=== PATIENT | male | born 1955 | race Caucasian/White ===

== ENCOUNTER 2019-07-12 19:59 | Emergency (ER) | payer MEDICARE ==
[~2019-07-12] VITALS: Ht 180.3 cm; Wt 130.2 kg
[~2019-07-12 19:59] MED LIST: ADVAIR 500-501 EACH INH; ATORVASTATIN CA20 MG PO; ATROVENT HFA12.9 GM INH; COMBIVENT RESPIM4 GM INH; GABAPENTIN300 MG PO; IPRAT-ALBUT 0.5-3 ML INH; LANTUS SOL100 UNIT/1 SUB-Q; LIDOCAINE30 G TOP; LISINOPRIL20 MG PO; METFORMIN HCL1000 MG PO; NOVOLOG FL100 UNIT/1 SUB-Q; OMEPRAZOLE20 MG PO; ONE TOUCH ULTR1 EACH MISC; OXYCODONE-ACET1 EAC1 PO; TORSEMIDE20 MG PO; VITAMIN D250000 UNIT PO
[2019-07-12] MEDS ORDERED: NORCO 5-325 TA1 EACH PO (22:21)
== END 2019-07-12 22:33 | disposition home or self-care (01) ==
LOC: ED 19:59
DX: R10.31 Right lower quadrant pain (principal); J44.9 Chronic obstructive pulmonary disease, unspecified; E11.9 Type 2 diabetes mellitus without complications; I10 Essential (primary) hypertension; F17.200 Nicotine dependence, unspecified, uncomplicated; Z79.899 Other long term (current) drug therapy; Z79.4 Long term (current) use of insulin
CPT/HCPCS: 74177; 80053; 81001; 83690; 85025; 96361; 99284-25; J1170; J2405; J7040

== ENCOUNTER 2020-01-30 18:02 | Inpatient (IN) | payer MEDICARE, OTHER ==
[~2020-01-30] VITALS: Ht 180.3 cm; Wt 117.8 kg
--- OUTSIDE RECORDS SUMMARY | ~2020-01-30 | XMS | Encounter Summary ---
Demographics + + + | Address | [address] | | | [place] [address] | + + + | Home Phone | | + + + | Preferred Language | Unknown | + + + | Marital Status | | + + + | Hoahaoism Affiliation | Unknown | + + + | Race | Unknown | + + + | Ethnic Group | Unknown | + + + Author + + + | Author | [facility] | | | and [place] | + + + | Organization | [facility] | | | and [place] | + + + | Address | Unknown | + + + | Phone | Unavailable | + + + Support + + + + + | Name | Relationship | Address | Phone | + + + + + | Liudmila Chang | ECON | [address] | | | | | [place], [place] | | | | | [address] | | + + + + + Care Team Providers + +------+ + | Care Director Business Systems Name | Role | Phone | + +------+ + | Kaylene Burch MD | PCP | | + +------+ + Encounter Details +--------+ + + + + | Date | Type | Department | Care Team | Description | +--------+ + + + + | 04/22/ | Imaging | [facility] | Provider, | | | 2017 | Exam | [facility] | MD Antonella [address] | | | | | IMAGING [address] | | | | | [address] [place] | [place] [address] | | | | | [place] [address] | | | | | | [phone] | | | +--------+ + + + + Social History + +-------+ +--------+------+ | Tobacco Use | Types | Packs/Day | Years | Date | | | | | Used | | + +-------+ +--------+------+ | Current Every Day | | | | | | Smoker | | | | | + +-------+ +--------+------+ + + +---------+ + | Alcohol Use | Drinks/Week | oz/Week | Comments | + + +---------+ + | Not Asked | 0 Standard drinks | 0.0 | | | | or equivalent | | | + + +---------+ + + + + | Sex Assigned at | Date Recorded | | | | + + + | Not on file | | + + + documented as of this encounter Plan of Treatment Not on filedocumented as of this encounter Procedures + +--------+ + + + | Procedure Name | Priori | Date/Time | Associated Diagnosis | Comments | | | ty | | | | + +--------+ + + + | US RENAL COMPLETE | Routin | 02/27/2017 | | Results for this | | | e | 1:20 PM | | procedure are in the | | | | PDT | | results section. | + +--------+ + + + documented in this encounter Results US Renal Complete (02/27/2017 1:20 PM PDT) + + | Specimen | + + | | + + + + + | Narrative | Performed At | + + + | External films | [facility] | | for comparison only - no result from [place]. | | + + + + +---------+ + + | Performing | Address | City/State/Zipcode | Phone Number | | Organization | | | | + +---------+ + + | [facility] | | | | + +---------+ + + documented in this encounter Visit Diagnoses Not on filedocumented in this encounter"
--- OUTSIDE RECORDS SUMMARY | ~2020-01-30 | XMS | Encounter Summary ---
Demographics + + + | Address | [address] | | | [place] [address] | + + + | Home Phone | | + + + | Preferred Language | Unknown | + + + | Marital Status | | + + + | Methodist Affiliation | Unknown | + + + | Race | Unknown | + + + | Ethnic Group | Unknown | + + + Author + + + | Author | [facility] | | | and [place] | + + + | Organization | [facility] | | | and [place] | + + + | Address | Unknown | + + + | Phone | Unavailable | + + + Support + + + + + | Name | Relationship | Address | Phone | + + + + + | Liudmila Chang | ECON | [address] | | | | | [place] | | | | | [address] | | + + + + + Care Team Providers + +------+ + | Care Digital Sales Assistant Name | Role | Phone | + +------+ + | Kaylene Burch MD | PCP | | + +------+ + Encounter Details +--------+ + + + + | Date | Type | Department | Care Team | Description | +--------+ + + + + | 01/31/ | Orders Only | [facility] | Provider, | | | 2019 | | SYSTEM GENERIC OP | MD [address]ella [address] | | | | | CONVERSION [address] | [address] [address]. | | | | | [address] [place], [place] | [place] [address] | | | | | [address] | | | | | | [phone] | | | +--------+ + + + + Social History + + + +--------+ + | Tobacco Use | Types | Packs/Day | Years | Date | | | | | Used | | + + + +--------+ + | Current Every Day | Cigarettes | 1 | | Started: 06/22/1972 | | Smoker | | | | | + + + +--------+ + + +---+---+---+ | Smokeless Tobacco: | | | | | Never Used | | | | + +---+---+---+ + + +---------+ + | Alcohol Use | Drinks/Week | oz/Week | Comments | + + +---------+ + | No | 0 Standard drinks | 0.0 | | | | or equivalent | | | + + +---------+ + + + + | Sex Assigned at | Date Recorded | | | | + + + | Not on file | | + + + documented as of this encounter Plan of Treatment Not on filedocumented as of this encounter Visit Diagnoses Not on filedocumented in this encounter"
--- OUTSIDE RECORDS SUMMARY | ~2020-01-30 | XMS | Encounter Summary ---
Demographics + + + | Address | [address] | | | [place] [address] | + + + | Home Phone | | + + + | Preferred Language | Unknown | + + + | Marital Status | | + + + | Restorationist Affiliation | Unknown | + + + | Race | Unknown | + + + | Ethnic Group | Unknown | + + + Author + + + | Author | [facility] | | | and [place] | + + + | Organization | [facility] | | | and [place] | + + + | Address | Unknown | + + + | Phone | Unavailable | + + + Support + + + + + | Name | Relationship | Address | Phone | + + + + + | Liudmila Chang | ECON | [address] | | | | | [place] | | | | | [address] | | + + + + + Care Team Providers + +------+ + | Care Concrete Products Machine Operator Name | Role | Phone | + +------+ + | Kaylene Burch MD | PCP | | + +------+ + Encounter Details +--------+ + + + + | Date | Type | Department | Care Team | Description | +--------+ + + + + | 09/09/ | Orders Only | [facility] | Conversion | | | 2016 | | NEPRHOLOGY [place] | Transaction, | | | | | [address] | Provider Unknown | | | | | [address] [place], [place] | [phone] | | | | | [address] | | | | | | [phone] | | | +--------+ + + + [...] | + +--------+ + + + | LIPID PANEL | Routin | 09/09/2016 | | Results for this | | | e | 9:02 AM | | procedure are in the | | | | PDT | | results section. | + +--------+ + + + | MICROALBUMIN/CREATIN | Routin | 09/09/2016 | | Results for this | | INE RATIO, URINE | e | 9:02 AM | | procedure are in the | | TEST | | PDT | | results section. | + +--------+ + + + | HEMOGLOBIN A1C | Routin | 09/09/2016 | | Results for this | | | e | 9:02 AM | | procedure are in the | | | | PDT | | results section. | + +--------+ + + + | COMPREHENSIVE | Routin | 09/09/2016 | | Results for this | | METABOLIC PANEL | e | 9:02 AM | | procedure are in the | | | | PDT | | results section. | + +--------+ + + + documented in this encounter Results Microalbumin/Creatinine Ratio, Urine (09/09/2016 9:02 AM PDT) + + + + + + | Component | Value | Ref Range | Performed | Pathologist | | | | | At | Signature | + + + + + + | ALBUMIN/CRE | 254.3 (A) | 0 - 30 | EXTERNAL | | | ATININE | | | LAB | | | RATIO.URINE | | | | | | .ORD.MG/G | | | | | | (TJAKER) | | | | | | | | | | | | | | | | | + + + + + + + + | Specimen | + + | Urine specimen | | (specimen) | + + + +---------+ + + | Performing | Address | City/State/Zipcode | Phone Number | | Organization | | | | + +---------+ + + | EXTERNAL LAB | | | | + +---------+ + + Hemoglobin A1C (09/09/2016 9:02 AM PDT) + +-------+ + + + | Component | Value | Ref Range | Performed | Pathologist | | | | | At | Signature | + +-------+ + + + | Hemoglobin | 9.6 | % | EXTERNAL | | | A1c | | | LAB | | + +-------+ + + + + + | Specimen | + + | Blood specimen | | (specimen) | + + + +---------+ + + | Performing | Address | City/State/Zipcode | Phone Number | | Organization | | | | + +---------+ + + | EXTERNAL LAB | | | | + +---------+ + + Lipid Panel (09/09/2016 9:02 AM PDT) + +-------+ + + + | Component | Value | Ref Range | Performed | Pathologist | | | | | At | Signature | + +-------+ + + + | Cholesterol | 100 | mg/dL | EXTERNAL | | | | | | LAB | | + +-------+ + + + | Triglycerid | 75 | 30 - 150 mg/dL | EXTERNAL | | | es | | | LAB | | + +-------+ + + + | HDL | 30.9 | mg/dl | EXTERNAL | | | | | | LAB | | + +-------+ + + + | LDL, | 54 | mg/dL | EXTERNAL | | | Calculated | | | LAB | | + +-------+ + + + | LDl/HDL | | | EXTERNAL | | | Ratio | | | LAB | | + +-------+ + + + | Chol/HDL | 3.2 | | EXTERNAL | | | Ratio | | | LAB | | + +-------+ + + + | VLDL | 15 | 4 - 40 mg/dL | EXTERNAL | | | | | | LAB | | + +-------+ + + + | Non HDL | 69 | | EXTERNAL | | | Chol. | | | LAB | | | (LDL+VLDL) | | | | | + +-------+ + + + + + | Specimen | + + | Blood specimen | | (specimen) | + + + +---------+ + + | Performing | Address | City/State/Zipcode | Phone Number | | Organization | | | | + +---------+ + + | EXTERNAL LAB | | | | + +---------+ + + Comprehensive Metabolic Panel (09/09/2016 9:02 AM PDT) + + + + + + | Component | Value | Ref Range | Performed | Pathologist | | | | | At | Signature | + + + + + + | Glucose, | 143 (A) | 70 - 100 mg/dL | EXTERNAL | | | Fasting | | | LAB | | + + + + + + | BUN | 13 | 6 - 23 mg/dL | EXTERNAL | | | | | | LAB | | + + + + + + | Creatinine | 0.69 (A) | 0.70 - 1.25 | EXTERNAL | | | | | mg/dL | LAB | | + + + + + + | BUN/Creatin | 18.8 | 6.0 - 28.6 | EXTERNAL | | | ine Ratio | | | LAB | | + + + + + + | Calcium | 8.8 | 8.4 - 10.2 | EXTERNAL | | | | | mg/dL | LAB | | + + + + + + | Protein, | 7.1 | 6.0 - 8.0 g/dL | EXTERNAL | | | Total | | | LAB | | + + + + + + | Albumin | 3.4 (A) | 3.5 - 5.0 | EXTERNAL | | | | | | LAB | | + + + + + + | Globulin | 3.7 (A) | 1.8 - 3.5 | EXTERNAL | | | | | | LAB | | + + + + + + | A/G Ratio | 0.9 (A) | 1.1 - 2.4 | EXTERNAL | | | | | | LAB | | + + + + + + | Bilirubin | 1.0 | 0.0 - 1.2 mg/dL | EXTERNAL | | | Total | | | LAB | | + + + + + + | ALP, | 75 | 31 - 120 | EXTERNAL | | | External | | | LAB | | + + + + + + | ALT | 7 | 7 - 52 U/L | EXTERNAL | | | | | | LAB | | + + + + + + | AST | 7 (A) | 13 - 39 U/L | EXTERNAL | | | | | | LAB | | + + + + + + | Na | 137 | 132 - 143 | EXTERNAL | | | | | mmol/L | LAB | | + + + + + + | K | 4.5 | 3.6 - 5.1 | EXTERNAL | | | | | mmol/L | LAB | | + + + + + + | Cl | 99 | 95 - 112 mmol/L | EXTERNAL | | | | | | LAB | | + + + + + + | CO2 | 26 | 19 - 31 mmol/L | EXTERNAL | | | | | | LAB | | + + + + + + | Anion Gap | 16.5 | 7 - 21 mmol/L | EXTERNAL | | | | | | LAB | | + + + + + + | Estimated | 116 | mg/dL | EXTERNAL | | | GFR | | | LAB | | + + + + + + + + | Specimen | + + | Blood specimen | | (specimen) | + + + +---------+ + + | Performing | Address | City/State/Zipcode | Phone Number | | Organization | | | | + +---------+ + + | EXTERNAL LAB | | | | + +---------+ + + documented in this encounter Visit Diagnoses Not on filedocumented in this encounter"
--- OUTSIDE RECORDS SUMMARY | ~2020-01-30 | XMS | Encounter Summary ---
Demographics + + + | Address | [address] | | | [place] [address] | + + + | Home Phone | | + + + | Preferred Language | Unknown | + + + | Marital Status | | + + + | Mandaeism Affiliation | Unknown | + + + | Race | Unknown | + + + | Ethnic Group | Unknown | + + + Author + + + | Author | [facility] | | | and [place] | + + + | Organization | [facility] | | | and [place] | + + + | Address | Unknown | + + + | Phone | Unavailable | + + + Support + + + + + | Name | Relationship | Address | Phone | + + + + + | Liudmila Chang | ECON | [address] | | | | | [place] | | | | | [address] | | + + + + + Care Team Providers + +------+ + | Care Paper Finisher Name | Role | Phone | + +------+ + | Kaylene Burch MD | PCP | | + +------+ + Encounter Details +--------+ + + + + | Date | Type | Department | Care Team | Description | +--------+ + + + + | 09/02/ | Orders Only | [facility] | Conversion | | | 2016 | | NEPHROLOGY [place] | Transaction, | | | | | [address] [facility] [address] | Provider Unknown | | | | | [address] [place] | | | | | | [address] | (Fax) | | | | | [phone] | | | +--------+ + + + [...] | + +--------+ + + + | BASIC METABOLIC | Routin | 09/02/2016 | | Results for this | | PANEL | e | 8:56 AM | | procedure are in the | | | | PDT | | results section. | + +--------+ + + + documented in this encounter Results Basic Metabolic Panel (09/02/2016 8:56 AM PDT) + +---------+ + + + | Component | Value | Ref Range | Performed | Pathologist | | | | | At | Signature | + +---------+ + + + | Glucose, | 188 (A) | 70 - 100 mg/dL | EXTERNAL | | | Fasting | | | LAB | | + +---------+ + + + | BUN | 12 | 6 - 23 mg/dL | EXTERNAL | | | | | | LAB | | + +---------+ + + + | Creatinine | 0.81 | 0.70 - 1.25 | EXTERNAL | | | | | mg/dL | LAB | | + +---------+ + + + | BUN/Creatin | 14.8 | 6.0 - 28.6 | EXTERNAL | | | ine Ratio | | | LAB | | + +---------+ + + + | Calcium | 9.0 | 8.4 - 10.2 | EXTERNAL | | | | | mg/dL | LAB | | + +---------+ + + + | Na | 135 | 132 - 143 | EXTERNAL | | | | | mmol/L | LAB | | + +---------+ + + + | K | 4.7 | 3.6 - 5.1 | EXTERNAL | | | | | mmol/L | LAB | | + +---------+ + + + | Cl | 97 | 95 - 112 mmol/L | EXTERNAL | | | | | | LAB | | + +---------+ + + + | CO2 | 27 | 19 - 31 mmol/L | EXTERNAL | | | | | | LAB | | + +---------+ + + + | Anion Gap | 15.7 | 7 - 21 mmol/L | EXTERNAL | | | | | | LAB | | + +---------+ + + + | Estimated | 97 | mg/dL | EXTERNAL | | | GFR | | | LAB | | + +---------+ + + + + + | Specimen [...]
--- OUTSIDE RECORDS SUMMARY | ~2020-01-30 | XMS | Encounter Summary ---
Demographics + + + | Address | [address] | | | [place] [address] | + + + | Home Phone | | + + + | Preferred Language | Unknown | + + + | Marital Status | | + + + | Adventist Affiliation | Unknown | + + + | Race | Unknown | + + + | Ethnic Group | Unknown | + + + Author + + + | Author | [facility] | | | and [place] | + + + | Organization | [facility] | | | and [place] | + + + | Address | Unknown | + + + | Phone | Unavailable | + + + Support + + + + + | Name | Relationship | Address | Phone | + + + + + | Liudmila Chang | ECON | [address] | | | | | [place] | | | | | [address] | | + + + + + Care Team Providers + +------+ + | Care Frame Table Operator Helper Name | Role | Phone | + +------+ + | Kaylene Burch MD | PCP | | + +------+ + Reason for Visit +--------+--------+ + | Reason | Onset | Comments | | | Date | | +--------+--------+ + | Other | 06/12/ | imaging orders | | | 2015 | | +--------+--------+ + Encounter Details +--------+ + + + + | Date | Type | Department | Care Team | Description | +--------+ + + + + | 06/12/ | Telephone | [facility] | Christopher Kim MD | Other (imaging | | 2014 | | OTOLARYNGOLOGY [address] | [address] | orders) | | | | [address] | [address] [place] | | | | | [place] | [place] [address] | | | | | [address] | [phone] | | | | | [phone] | | | +--------+ + + + [...] + + documented as of this encounter Miscellaneous Notes Telephone Encounter - Rosa Galloway RN - 06/18/2015 8:33 AM PSTCalled and left jodie essage that imaging orders have been sent to [facility]. elephone Encounter - Cindi Thorpe, Sami Ass isdario - 06/13/2015 9:09 AM PSTOrders have been sent to [facility] Need to call and let the patient know that the orders are there. elephone Encounter - Anna Benz - 06/12/2015 2:18 PM PSTPatients called in to let the nurse know they would like imaging to be sent at [facility]. Blood work has been done at [facility] in [place]. documented in this encounter Plan of Treatment Not on filedocumented as of this encounter Visit Diagnoses Not on filedocumented in this encounter"
--- OUTSIDE RECORDS SUMMARY | ~2020-01-30 | XMS | Encounter Summary ---
Demographics + + + | Address | [address] | | | [place] [address] | + + + | Home Phone | | + + + | Preferred Language | Unknown | + + + | Marital Status | | + + + | Religion Affiliation | Unknown | + + + | Race | Unknown | + + + | Ethnic Group | Unknown | + + + Author + + + | Author | [facility] | | | and [place] | + + + | Organization | [facility] | | | and [place] | + + + | Address | Unknown | + + + | Phone | Unavailable | + + + Support + + + + + | Name | Relationship | Address | Phone | + + + + + | Liudmila Chang | ECON | [address] | | | | | [place] | | | | | [address] | | + + + + + Care Team Providers + +------+ + | Care Senior Php Web Developer Name | Role | Phone | + +------+ + | Kaylene Burch MD | PCP | | + +------+ + Encounter Details +--------+ + + + + | Date | Type | Department | Care Team | Description | +--------+ + + + + | 12/18/ | Hospital | C GENERIC IP | Conversion | Pain | | 2016 | Encounter | CONVERSION [address] | Transaction, | | | | | [address] | Provider Unknown | | | | | [place] | [phone] | | | | | [address] | | | | | | [phone] | | | +--------+ + + + [...] + + documented as of this encounter Medications at Time of Discharge + + + +---------+--------+ + | Medication | Sig | Dispensed | Refills | Start | End Date | | | | | | Date | | + + + +---------+--------+ + | aspirin 81 mg EC | Take 81 mg by mouth | | 0 | | | | tablet | Daily. | | | | | + + + +---------+--------+ + | carbidopa-levodopa | Take 1 tablet by | | 0 | | | | (SINEMET) 10-100 mg | mouth 3 times daily. | | | | | | per tablet | | | | | | + + + +---------+--------+ + | gabapentin | Take 300 mg by mouth | | 0 | | | | (NEURONTIN) 300 mg | 3 times daily. | | | | | | capsule | | | | | | + + + +---------+--------+ + | insulin aspart | Inject 30 Units | | 0 | | | | (NOVOLOG FLEXPEN) | under the skin 2 | | | | | | 100 units/mL | times daily. | | | | | | injection pen | | | | | | + + + +---------+--------+ + | lisinopril | Take 20 mg by mouth | | 0 | | | | (PRINIVIL, ZESTRIL) | Daily. | | | | | | 20 mg tablet | | | | | | + + + +---------+--------+ + | metFORMIN | Take 500 mg by mouth | | 0 | | | | (GLUCOPHAGE) 1000 MG | Daily. | | | | | | tablet | | | | | | + + + +---------+--------+ + | simvastatin | Take 20 mg by mouth | | 0 | | | | (ZOCOR) 40 mg tablet | nightly. | | | | | + + + +---------+--------+ + | insulin detemir | Inject under the | | 0 | | | | (LEVEMIR FLEXTOUCH) | skin nightly. | | | | 7 | | 100 units/mL | | | | | | | injection (pen) | | | | | | + + + +---------+--------+ + | terbinafine | Apply topically 2 | | 0 | | | | (LAMISIL) 1% cream | times daily. | | | | 7 | + + + +---------+--------+ + documented as of this encounter Plan of Treatment Not on filedocumented as of this encounter Procedures + +--------+ + + + | Procedure Name | Priori | Date/Time | Associated Diagnosis | Comments | | | ty | | | | + +--------+ + + + | CT CHEST WO CONTRAST | Routin | 11/12/2015 | | Results for this | | | e | 1:03 PM | | procedure are in the | | | | PDT | | results section. | + +--------+ + + + documented in this encounter Results CT Chest wo Contrast (11/12/2015 1:03 PM PDT) + + | Specimen | + + | | + + + + + | Narrative | Performed At | + + + | This is a non-reportable procedure without a radiologist report and | | | is used for image storage only | | + + + + + | Procedure Note | + + | Faustino Griffith - 02/03/2019 9:46 PM PDT This is a non-reportable procedure | | without a radiologist report and isused for image storage only | + + documented in this encounter Visit Diagnoses + + | Diagnosis | + + | Pain Generalized pain | + + documented in this encounter"
--- OUTSIDE RECORDS SUMMARY | ~2020-01-30 | XMS | Encounter Summary ---
Demographics + + + | Address | [address] | | | [place] [address] | + + + | Home Phone | | + + + | Preferred Language | Unknown | + + + | Marital Status | | + + + | Jehovah'S Witness Affiliation | Unknown | + + + | Race | Unknown | + + + | Ethnic Group | Unknown | + + + Author + + + | Author | [facility] | | | and [place] | + + + | Organization | [facility] | | | and [place] | + + + | Address | Unknown | + + + | Phone | Unavailable | + + + Support + + + + + | Name | Relationship | Address | Phone | + + + + + | Liudmila Chang | ECON | [address] | | | | | [place] | | | | | [address] | | + + + + + Care Team Providers + +------+ + | Care Drying Room Operator Name | Role | Phone | + +------+ + | Kaylene Burch MD | PCP | | + +------+ + Reason for Visit +--------+--------+ + | Reason | Onset | Comments | | | Date | | +--------+--------+ + | Other | 06/27/ | | | | 2015 | | +--------+--------+ + Encounter Details +--------+ + + + + | Date | Type | Department | Care Team | Description | +--------+ + + + + | 06/27/ | Telephone | [facility] | Christopher Kim MD | Other | | 2016 | | OTOLARYNGOLOGY [address] | [address] | | | | | [address] | [address] [place] | | | | | [place], [place] | [place] [address] | | | | | [address] | [phone] | | | | | [phone] | | | +--------+ + + + [...] this encounter Miscellaneous Notes Telephone Encounter - Cindi Thorpe Estate Agent - 08/15/2015 8:30 AM PSTLabs hav e been reviewed 8 :31 AM PSTTelephone Encounter - Cindi Thorpe Estate Agent - 07/03/2015 10:37 AM PS TJust received labs and they have been placed on desnicole so he can review them. Electr onically signed by Cindi Thorpe Estate Agent at 07/03/2015 10:38 AM PSTTelephone En counter - Roxana Contreras CMA - 06/29/2015 9:14 AM PSTCalled and left another message for th e patient to call back elephone Encounter - Roxana Contreras CMA - 06/27/2015 9:59 AM PSTCalled and left a message f or the patient to call back and let us know if he has had labs and his thyroid u/s done yet. documented in this enco unter Plan of Treatment Not on filedocumented as of this encounter Visit Diagnoses Not on filedocumented in this encounter"
--- OUTSIDE RECORDS SUMMARY | ~2020-01-30 | XMS | Encounter Summary ---
Demographics + + + | Address | [address] | | | [place] [address] | + + + | Home Phone | | + + + | Preferred Language | Unknown | + + + | Marital Status | | + + + | Baptist Affiliation | Unknown | + + + | Race | Unknown | + + + | Ethnic Group | Unknown | + + + Author + + + | Author | [facility] | | | and [place] | + + + | Organization | [facility] | | | and [place] | + + + | Address | Unknown | + + + | Phone | Unavailable | + + + Support + + + + + | Name | Relationship | Address | Phone | + + + + + | Liudmila Chang | ECON | [address] | | | | | [place] | | | | | [address] | | + + + + + Care Team Providers + +------+ + | Care Auditing Specialist Name | Role | Phone | + +------+ + | Kaylene Burch MD | PCP | | + +------+ + Reason for Visit + + + | Reason | Comments | + + + | New Patient | thyroid,no pain | + + + Evaluate & Treat (Routine) +--------+--------+ + + + + | Status | Reason | Specialty | Diagnoses / | Referred By | Referred To | | | | | Procedures | Contact | Contact | +--------+--------+ + + + + | Closed | | Otolaryngolog | Diagnoses | Mar[place], | Christopher Henson | | | | y | | Kaylene | MD [place] [address] | | | | | thyroid/ | MD Candido | [address] | | | | | /[place] | [address] | [address] | | | | | n/img at st | [id number] | [place], | | | | | anth | [place], | [place] [address] | | | | | Procedures | [place] [address] | Phone: | | | | | NEW PATIENT | Phone: | [phone] | | | | | | [phone] | Fax: | | | | | | Fax: | [phone] | | | | | | [phone] | | +--------+--------+ + + + + Encounter Details +--------+---------+ + + + | Date | Type | Department | Care Team | Description | +--------+---------+ + + + | 05/10/ | Office | [facility] | Christopher Henson MD | Thyroid nodule | | 2014 | Visit | OTOLARYNGOLOGY [address] | [address] | (Primary Dx); | | | | [address] | [address] [place] | Nontoxic uninodular | | | | [place], [place] | [place] [address] | goiter | | | | [address] | [phone] | | | | | [phone] | | | +--------+---------+ + + + Social History + +-------+ [...] + + documented as of this encounter Last Filed Vital Signs + + + + + | Vital Sign | Reading | Time Taken | Comments | + + + + + | Blood Pressure | - | - | | + + + + + | Pulse | 96 | 05/10/2015 1:43 PM | | | | | PST | | + + + + + | Temperature | - | - | | + + + + + | Respiratory Rate | 16 | 05/10/2015 1:43 PM | | | | | PST | | + + + + + | Oxygen Saturation | 91% | 05/10/2015 1:43 PM | | | | | PST | | + + + + + | Inhaled Oxygen | - | - | | | Concentration | | | | + + + + + | Weight | 120.2 kg (265 lb) | 05/10/2015 1:43 PM | | | | | PST | | + + + + + | Height | 181.6 cm (5' 11.5") | 05/10/2015 1:43 PM | | | | | PST | | + + + + + | Body Mass Index | 36.44 | 05/10/2015 1:43 PM | | | | | PST | | + + + + + documented in this encounter Progress Notes Christopher Henson MD - 05/10/2015 4:01 PM PST [facility] OTOLARYNGOLOGY [address] [facility] [address] OFFICE NOTE CHRISTOPHER HENSON MD Patient: GALINDO CHANG Admitting: MR #: [id number] LOC: PT TYPE: Adm Date: 05/10/2015 : 1955 DATE OF VISIT: 05/10/2015 The patient had a CT scan of his chest and it was noted he had nodules in his thyroid glan d. The patient had a thyroid ultrasound back in October of this year and noted to have 4 nodul es at least in the right side and 3 in the left, also other small nodules were noted, some of them were cystic. The patient's largest nodule in the left is 2.1 cm. He had an attemp t at a fine-needle aspiration, but this was unsuccessful. The patient was sent for ENT for further evaluation. He is not having any problems with swallowing, no difficulty with his speech. 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 No other ENT complaints. EXAMINATION: GENERAL: Shows an alert 59-year-old male. HEENT: Skin of the face, nose and ears appear healthy, has a lot of torres. Ear canals ar e open. They are clean. Drums were clear. Nasal passages: No obstruction, no mass or le jose david on either side. He feels he breathes okay through the nose. Parotid, submandibular g lands felt normal. Facial movement symmetrical. Floor of the mouth, buccal mucosa, hard palate, teeth, lips, gums are healthy. No mass seen in the oropharynx and posterior pharyn geal wall was smooth. Tongue and soft palate are smooth and move symmetrically. NECK: There are no masses or lymphadenopathy. Thyroid area: No obvious masses palpated. Trachea was midline. Good range of motion of the neck is noted. The ultrasound was reviewed. As noted, he has 4 nodules on the right and 3 in the left. The ones in the right range from around a centimeter to 1.5 cm, the left ones are a centime ter range, with the one larger one at the 2.1-2.2 cm size. IMPRESSION: Multinodular goiter. There were no particular abnormal calcifications pointi ng to any particular one for a suspicious lesion. PLAN: The patient will have a repeat thyroid ultrasound seeing he is now about 8 months o ut from the previous ultrasound. Also a T3-T4 and TSH will be obtained. The patient will return once the ultrasound has been completed to see if there is any growth in any of these nodules. Further decisions will be made at that point. CHRISTOPHER HENSON MD Dictated by CHRISTOPHER HENSON MD 05/10/2015 16:01:29 Transcribed on 05/11/2015 14:25:53 by candace job# [id number] Confirmation #: [id number] signed by Christopher Henson MD at 05/13/2015 2:31 PM PST Christopher Henson MD - 05/10/2015 3:57 PM PSTSee dictation # [id number] signed by Christopher Henson MD at 05/10/2015 4:02 PM PSTdocumented in th is encounter Plan of Treatment + +---------+--------+ + + | Name | Type | Priori | Associated Diagnoses | Order Schedule | | | | ty | | | + +---------+--------+ + + | US Head Neck Soft | Imaging | Routin | Thyroid nodule | Expected: | | Tissue | | e | | 05/10/2015, Expires: | | | | | | 05/10/2016 | + +---------+--------+ + + | TSH | Lab | Routin | Thyroid nodule | 1 Occurrences | | | | e | | starting 05/10/2015 | | | | | | until 05/10/2016 | + +---------+--------+ + + | T4, Free | Lab | Routin | Thyroid nodule | 1 Occurrences | | | | e | | starting 05/10/2015 | | | | | | until 05/10/2016 | + +---------+--------+ + + | T3 | Lab | Routin | Thyroid nodule | 1 Occurrences | | | | e | | starting 05/10/2015 | | | | | | until 05/10/2016 | + +---------+--------+ + + documented as of this encounter Visit Diagnoses + + | Diagnosis | + + | Thyroid nodule - Primary Nontoxic uninodular goiter | + + | Nontoxic uninodular goiter | + + documented in this encounter
--- OUTSIDE RECORDS SUMMARY | ~2020-01-30 | XMS | Encounter Summary ---
Demographics + + + | Address | [address] | | | [place] [address] | + + + | Home Phone | | + + + | Preferred Language | Unknown | + + + | Marital Status | | + + + | Taoism Affiliation | Unknown | + + + | Race | Unknown | + + + | Ethnic Group | Unknown | + + + Author + + + | Author | [facility] | | | and [place] | + + + | Organization | [facility] | | | and [place] | + + + | Address | Unknown | + + + | Phone | Unavailable | + + + Support + + + + + | Name | Relationship | Address | Phone | + + + + + | Liudmila Chang | ECON | [address] | | | | | [place] | | | | | [address] | | + + + + + Care Team Providers + +------+ + | Care Jig Inspector Name | Role | Phone | + +------+ + | Kaylene Burch MD | PCP | | + +------+ + Reason for Visit + +--------+ + | Reason | Onset | Comments | | | Date | | + +--------+ + | Imaging Only | 11/07/ | | | | 2015 | | + +--------+ + Encounter Details +--------+ + + + + | Date | Type | Department | Care Team | Description | +--------+ + + + + | 11/07/ | Telephone | [facility] | Christopher Kim MD | Imaging Only | | 2015 | | OTOLARYNGOLOGY [address] | [address] | | | | | [address] | [address] [place] | | | | | [place] | [place] [address] | | | | | [address] | [phone] | | | | | [phone] | | | +--------+ + + + [...] Telephone Encounter - Rosa Galloway RN - 11/21/2015 1:28 PM PDTLeft message that a new ultrasound was ordered so he may go obtain that at [facility] now. elephone Encounter - Anna Benz - 0 11/08/2015 4:24 PM PDTPatients called in asking if ultrasound is still valid, it was or dered 05/10/2015. Please check and see if patient can have this done or if new orders need t o be placed. documented in th is encounter Plan of Treatment + +---------+--------+ + + | Name | Type | Priori | Associated Diagnoses | Order Schedule | | | | ty | | | + +---------+--------+ + + | US Head Neck Soft | Imaging | Routin | Nontoxic | Expected: | | Tissue | | e | uninodular goiter | 11/21/2015, Expires: | | | | | | 11/20/2016 | + +---------+--------+ + + documented as of this encounter Visit Diagnoses + + | Diagnosis | + + | Nontoxic uninodular goiter - Primary | + + documented in this encounter"
--- OUTSIDE RECORDS SUMMARY | ~2020-01-30 | XMS | Encounter Summary ---
Demographics + + + | Address | [address] | | | [place] [address] | + + + | Home Phone | | + + + | Preferred Language | Unknown | + + + | Marital Status | | + + + | Hinduism Affiliation | Unknown | + + + | Race | Unknown | + + + | Ethnic Group | Unknown | + + + Author + + + | Author | [facility] | | | and [place] | + + + | Organization | [facility] | | | and [place] | + + + | Address | Unknown | + + + | Phone | Unavailable | + + + Support + + + + + | Name | Relationship | Address | Phone | + + + + + | Liudmila Chang | ECON | [address] | | | | | [place] | | | | | [address] | | + + + + + Care Team Providers + +------+ + | Care Shock Absorber Installer Name | Role | Phone | + +------+ + | Kaylene Burch MD | PCP | | + +------+ + Encounter Details +--------+ + + + + | Date | Type | Department | Care Team | Description | +--------+ + + + + | 11/20/ | Orders Only | [facility] | Christopher Kim MD | Nontoxic uninodular | | 2016 | | OTOLARYNGOLOGY [address] | [address] | goiter | | | | [address] | [address] [place] | | | | | [place], [place] | [place] [address] | | | | | [address] | [phone] | | | | | [phone] | | | +--------+ + + + [...] filedocumented as of this encounter Visit Diagnoses + + | Diagnosis | + + | Nontoxic uninodular goiter | + + documented in this encounter"
--- OUTSIDE RECORDS SUMMARY | ~2020-01-30 | XMS | Encounter Summary ---
Demographics + + + | Address | [address] | | | [place] [address] | + + + | Home Phone | | + + + | Preferred Language | Unknown | + + + | Marital Status | | + + + | Jew Affiliation | Unknown | + + + | Race | Unknown | + + + | Ethnic Group | Unknown | + + + Author + + + | Author | [facility] | | | and [place] | + + + | Organization | [facility] | | | and [place] | + + + | Address | Unknown | + + + | Phone | Unavailable | + + + Support + + + + + | Name | Relationship | Address | Phone | + + + + + | Liudmila Chang | ECON | [address] | | | | | [place] | | | | | [address] | | + + + + + Care Team Providers + +------+ + | Care Digital Account Executive Name | Role | Phone | + +------+ + | Kaylene Burch MD | PCP | | + +------+ + Reason for Visit + + + | Reason | Comments | + + + | Urgency Incontinence | | + + + Encounter Details +--------+---------+ + + + | Date | Type | Department | Care Team | Description | +--------+---------+ + + + | 05/19/ | Office | [facility] | Mohan Prado | OAB (overactive | | 2017 | Visit | [address] | MD Alex [address] | bladder) (Primary | | | | [place] | [address] [place] | Dx); Urge | | | | [address] | [address] | incontinence of | | | | [phone] | | urine; | | | | | | Nephrolithiasis; | | | | | | Candidiasis | +--------+---------+ + + + Social History + + + +--------+ + | Tobacco Use | Types | Packs/Day | Years | Date | | | | | Used | | + + + +--------+ + | Current Every Day | Cigarettes | 1.5 | | Started: 06/22/1972 | | Smoker [...] + + + | Blood Pressure | 136/74 | 05/19/2017 2:01 PM | | | | | PST | | + + + + + | Pulse | 68 | 05/19/2017 2:01 PM | | | | | PST | | + + + + + | Temperature | - | - | | + + + + + | Respiratory Rate | 24 | 05/19/2017 2:01 PM | | | | | PST | | + + + + + | Oxygen Saturation | - | - | | + + + + + | Inhaled Oxygen | - | - | | | Concentration | | | | + + + + + | Weight | 120.4 kg (265 lb 6.9 | 05/19/2017 2:01 PM | | | | oz) | PST | | + + + + + | Height | 181.6 cm (5' 11.5") | 05/19/2017 2:01 PM | | | | | PST | | + + + + + | Body Mass Index | 36.5 | 05/19/2017 2:01 PM | | | | | PST | | + + + + + documented in this encounter Progress Notes Mohan Prado MD - 05/19/2017 2:30 PM PSTFormatting of this note might be different f rom the original. Chief Complaint Patient presents with Urgency Incontinence HPI Yimi Chang is a 61 y.o. male patient of Kaylene Burch MD here today for follow up of post void dribbling and incontinence Today patient presents with complaints mostly centered around numbness in his hands. He st ates he thinks he had a failed carpal tunnel surgery and is concerned about his manual dexte rity. Multiple times throughout the clinic visit patient had to be redirected as he continu ally discussed his hands. Started on oxybutynin for OAB and urge incontinence. He states this has helped with the le akage. Patient was unable to quantify how much this is helped however he states he would li ke to continue taking as this has improved quality of life. He was also started on nystatin cream for yeast infection of the groin. He states that the rash has resolved as well as the itch. Assessment Yimi was seen today for urgency incontinence. Diagnoses and all orders for this visit: OAB (overactive bladder) Urge incontinence of urine Nephrolithiasis Candidiasis Plan Encouraged patient to continue taking the oxybutynin if he notices a difference in his urin driss symptoms. Again encouraged patient to undergo treatment for his kidney stones. These are large and h e would be very unlikely to pass them on his own. The stones are also likely to continue to grow as time goes by. This increased size will make removing the more difficult. Rest of discussed the possibility of causing silent obstruction as well as renal failure and potenti ally life-threatening sepsis if he should contract a UTI with an obstructing stone. Exam patient was more concerned about his hands. He states he is scheduled to see an ortho pedic surgeon later in May. He thinks that after his hands are dressed taking consider focusing on other medical problems. Patient will follow up in 3 months. Hopefully by this time there'll be a plan in place reg arding the numbness in bilateral upper extremities. Greater than 15 minutes was spent [id number] with the patient and greater than 50% of the time was spent counseling the patient. Past Medical History Past Medical History: Diagnosis Date Arthritis BPH (benign prostatic hyperplasia) Chronic obstructive pulmonary disease (HCC) 04/21/2017 DM (diabetes mellitus) (HCC) Hearing loss HTN (hypertension) Hyperlipidemia Metabolic syndrome Obesity Urge incontinence 2016 Past Surgical History Past Surgical History: Procedure Laterality Date CHOLECYSTECTOMY COLONOSCOPY 2009 VASECTOMY Family History: Family History Problem Relation Age of Onset Stroke Father Diabetes Mother Stroke Mother Heart attack Mother Social History: Social History Social History Marital status: Spouse name: N/A Number of children: N/A Years of education: N/A Social History Main Topics Smoking status: Current Every Day Smoker Packs/day: 1.50 Types: Cigarettes Start date: 06/22/1972 Smokeless tobacco: Never Used Alcohol use No Drug use: Unknown Sexual activity: Not Asked Other Topics Concern None Social History Narrative None No Known Allergies Medications: Current Outpatient Prescriptions: albuterol-ipratropium (DUONEB) 2.5-0.5 mg/3 mL SOLN, Inhale 3 mLs into the lungs every 6 hours as needed., Disp: , Rfl: aspirin 81 mg EC tablet, Take 81 mg by mouth Daily., Disp: , Rfl: carbidopa-levodopa (SINEMET) 10-100 mg per tablet, Take 1 tablet by mouth 3 times keyona y., Disp: , Rfl: ergocalciferol (VITAMIN D-2) 50,000 units capsule, TAKE 1 CAPSULE BY MOUTH TWICE A WEE K, Disp: , Rfl: gabapentin (NEURONTIN) 300 mg capsule, Take 300 mg by mouth 3 times daily., Disp: , Rf l: Glucose Blood (BLOOD GLUCOSE TEST STRIPS) STRP, 1 each., Disp: , Rfl: insulin aspart (NOVOLOG FLEXPEN) 100 units/mL injection pen, Inject 30 Units under the skin 2 times daily., Disp: , Rfl: insulin glargine (LANTUS SOLOSTAR) 100 units/mL injection (pen), Inject 40 Units under the skin 2 times daily., Disp: , Rfl: lisinopril (PRINIVIL, ZESTRIL) 20 mg tablet, Take 20 mg by mouth Daily., Disp: , Rfl: metFORMIN (GLUCOPHAGE) 1000 MG tablet, Take 500 mg by mouth Daily., Disp: , Rfl: nystatin (MYCOSTATIN) cream, Apply to rash tid as needed, Disp: 15 g, Rfl: 1 oxybutynin (DITROPAN-XL) 10 MG 24 hr tablet, Take 1 tablet by mouth Daily., Disp: 30 t ablet, Rfl: 3 simvastatin (ZOCOR) 40 mg tablet, Take 20 mg by mouth nightly., Disp: , Rfl: spironolactone (ALDACTONE) 25 mg tablet, Take 1 tablet by mouth., Disp: , Rfl: ROS Objective BP 136/74 | Pulse 68 | Resp 24 | Ht 1.816 m (5' 11.5") | Wt 120.4 kg (265 lb 6.9 oz) | BMI 36.50 kg/m General Appearance: Alert, cooperative, no distress, appears stated age Head: Normocephalic, without obvious abnormality, atraumatic Eyes: PERRL, conjunctiva/corneas clear, EOM's intact Throat: Lips, mucosa, and tongue normal; teeth and gums normal Neck: Supple, symmetrical, no adenopathy Lungs: Regular unlabored breathing, no accessory muscle use Chest Wall: No tenderness or deformity Resolved groin rash, normal external genitalia Abdomen: Soft, non-tender, obese, rash in pannus skin fold, it appears the same as the ra sh in the groin creases Extremities: Extremities normal, atraumatic, no cyanosis, clubbing, mild bilateral LE edema Pulses: Radial pulses 2+ and symmetric Skin: Warm and dry Lymph nodes: Cervical and supraclavicular nodes normal Neurologic: Gait normal, CN 2-12 grossly intact; c/o numbess and weakness in fingers 4 and 5 of both hands R>L Data: CT scan March 13, 2017 I personally reviewed and interpreted CT scan images. The right kidney appears normal. Th ere is no evidence of kidney stone hydronephrosis or mass. On delayed images there is no fi lling defects noted. The bladder is relatively normal. The right kidney demonstrates a lar ge cyst in the midpole of the kidney. Precontrast images show a 8 hounsfielf units and post contrast show 12. There is contrast that is seen in the cyst. 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 Results for orders placed or performed in visit on 04/21/17 PSA, Diagnostic Result Value Ref Range PSA 0.47 <=4.00 ng/mL No results found for: JAY Burch MD's notes were reviewed in clinic today. Return in about 3 months (around 08/19/2017).. CC: Kaylene Burch MD documented in this encounter Plan of Treatment Not on filedocumented as of this encounter Visit Diagnoses + + | Diagnosis | + + | OAB (overactive bladder) - Primary Hypertonicity of bladder | + + | Urge incontinence of urine Urge incontinence | + + | Nephrolithiasis Calculus of kidney | + + | Candidiasis Candidiasis of unspecified site | + + documented in this encounter
--- OUTSIDE RECORDS SUMMARY | ~2020-01-30 | XMS | Encounter Summary ---
Demographics + + + | Address | [address] | | | [place] [address] | + + + | Home Phone | | + + + | Preferred Language | Unknown | + + + | Marital Status | | + + + | Orthodoxy Affiliation | Unknown | + + + | Race | Unknown | + + + | Ethnic Group | Unknown | + + + Author + + + | Author | [facility] | | | and [place] | + + + | Organization | [facility] | | | and [place] | + + + | Address | Unknown | + + + | Phone | Unavailable | + + + Support + + + + + | Name | Relationship | Address | Phone | + + + + + | Liudmila Chang | ECON | [address] | | | | | [place], [place] | | | | | [address] | | + + + + + Care Team Providers + +------+ + | Care Distribution Center Manager Name | Role | Phone | + +------+ + | Kaylene Burch MD | PCP | | + +------+ + Reason for Visit Diagnostic/Screening (Routine) +--------+--------+ + + + + | Status | Reason | Specialty | Diagnoses / | Referred By | Referred To | | | | | Procedures | Contact | Contact | +--------+--------+ + + + + | Closed | | Radiology | Procedures | Provider, | | | | | | CT Abdomen | Historical, | | | | | | w zachary | [address] | | | | | | Contrast | [address] | | | | | | | [place] | | | | | | | [address] | | +--------+--------+ + + + + Encounter Details +--------+ + + + + | Date | Type | Department | Care Team | Description | +--------+ + + + + | 04/22/ | Imaging | [facility] | Provider, | | | 2016 | Exam | [facility] | MD Antonella [address] | | | | | IMAGING [address] | [address] | | | | | [address] [place] | [place] [address] | | | | | [place] [address] | | | | | | [phone] | | | +--------+ + + + [...] + +--------+ + + + | CT ABDOMEN W WO | Routin | 03/13/2017 | | Results for this | | CONTRAST | e | 9:15 AM | | procedure are in the | | | | PDT | | results section. | + +--------+ + + + documented in this encounter Results CT Abdomen w wo Contrast (03/13/2017 9:15 AM PDT) + + | Specimen | + + | | + + + + + | Narrative | Performed At | + + + | External films | [facility] | | for comparison only - no result from [facility]. | | + + + + +---------+ + + | Performing | Address | City/State/Zipcode | Phone Number | | Organization | | | | + +---------+ + + | [facility] | | | | + +---------+ + + documented in this encounter Visit Diagnoses Not on filedocumented in this encounter"
--- OUTSIDE RECORDS SUMMARY | ~2020-01-30 | XMS | Encounter Summary ---
Demographics + + + | Address | [address] | | | [place] [address] | + + + | Home Phone | | + + + | Preferred Language | Unknown | + + + | Marital Status | | + + + | Yarsani Affiliation | Unknown | + + + | Race | Unknown | + + + | Ethnic Group | Unknown | + + + Author + + + | Author | [facility] | | | and [place] | + + + | Organization | [facility] | | | and [place] | + + + | Address | Unknown | + + + | Phone | Unavailable | + + + Support + + + + + | Name | Relationship | Address | Phone | + + + + + | Liudmila Chang | ECON | [address] | | | | | [place] | | | | | [address] | | + + + + + Care Team Providers + +------+ + | Care Machine Group Leader Name | Role | Phone | + +------+ + | Kaylene Burch MD | PCP | | + +------+ + Reason for Visit + + + | Reason | Comments | + + + | New Patient | Mass in Right kidney, post void dribbling | + + + Evaluate & Treat (Routine) +--------+--------+ + + + + | Status | Reason | Specialty | Diagnoses / | Referred By | Referred To | | | | | Procedures | Contact | Contact | +--------+--------+ + + + + | Closed | | Urology | Diagnoses | [place], | Johan, | | | | | Mass of | Singh, | Mohan Johnson, | | | | | right kidney | [employer] [address] | MD [address] | | | | | Post-void | [place] | [address] [place] | | | | | dribbling | [address] | [place] | | | | | NEW/ MASS OF | [place], | [address] Phone: | | | | | R KIDNEY/ | [place] | [phone] | | | | | POST-VOID | [id number] | Fax: | | | | | [place]/ | Phone: | [phone] | | | | | [place] | [phone] | | | | | | Procedures | Fax: | | | | | | NEW PATIENT | [phone] | | +--------+--------+ + + + + Encounter Details +--------+---------+ + + + | Date | Type | Department | Care Team | Description | +--------+---------+ + + + | 04/21/ | Office | [facility] | Mohan Prado | Right kidney mass | | 2017 | Visit | [address] | MD Alex [address] | (Primary Dx); | | | | [place] | [address] [place] | Post-void dribbling; | | | | [address] | [address] | Urge incontinence; | | | | [phone] | | Benign prostatic | | | | | | hyperplasia with | | | | | | weak urinary stream; | | | | | | Candidiasis; Kidney | | | | | | stones | +--------+---------+ + + + Social History + +-------+ +--------+------+ | Tobacco Use | Types | Packs/Day | Years | Date | | | | | Used | | + +-------+ +--------+------+ | Current Every Day | | 1.5 | | | | Smoker | | [...] + + + | Blood Pressure | 128/64 | 04/21/2017 3:29 PM | | | | | PDT | | + + + + + | Pulse | 77 | 04/21/2017 3:29 PM | | | | | PDT | | + + + + + | Temperature | - | - | | + + + + + | Respiratory Rate | 20 | 04/21/2017 3:29 PM | | | | | PDT | | + + + + + | Oxygen Saturation | - | - | | + + + + + | Inhaled Oxygen | - | - | | | Concentration | | | | + + + + + | Weight | 121.2 kg (267 lb 3.2 | 04/21/2017 3:29 PM | | | | oz) | PDT | | + + + + + | Height | 181.6 cm (5' 11.5") | 04/21/2017 3:29 PM | | | | | PDT | | + + + + + | Body Mass Index | 36.75 | 04/21/2017 3:29 PM | | | | | PDT | | + + + + + documented in this encounter Progress Notes Mohan Prado MD - 04/21/2017 4:00 PM PDTFormatting of this note might be different f rom the original. Chief Complaint Patient presents with New Patient Mass in Right kidney, post void dribbling HPI Yimi Chang is a 61 y.o. male patient of Kaylene Burch MD here today for evalua tion of Mass in Right kidney, post void dribbling, incontinence Patient with a history of proteinuria for which he was referred to nephrology. He underwen t renal ultrasound which revealed possible cystic mass. With this finding a CT urogram was performed and revealed a possible cystic mass on the left. He denies any gross hematuria an d no flank pain. LUTS: urgency, frequency, nocturia every 2-3 hours, weak stream States he has no sensation when he is peeing. Has urge to void but does not feel anything w hile he is peeing. Has to listen or see the toilet to know that he is done No gross hematuria, no uti Does have incontinence vs post void dribbling? Patient cannot distinguish AUA score of 24 Hospital records from nephrology summarized from February 2017 Urgently referred for proteinuria as well as diabetic nephropathy Creatinine was noted at 0.8 27 July 2016 Patient was encouraged to continue good glucose management as well as blood pressure contro l He was also encouraged to avoid all NSAIDs Patient to continue spironolactone Assessment Yimi was seen today for new patient. Diagnoses and all orders for this visit: Right kidney mass - POCT Urinalysis Dipstick Automated Post-void dribbling - POCT Urinalysis Dipstick Automated - PSA, Diagnostic; Future Urge incontinence Benign prostatic hyperplasia with weak urinary stream - PSA, Diagnostic; Future Candidiasis Kidney stones Other orders - nystatin (MYCOSTATIN) cream; Apply to rash tid as needed - oxybutynin (DITROPAN-XL) 10 MG 24 hr tablet; Take 1 tablet by mouth Daily. 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 On delayed images there is contrast seen inside the cyst which would be consistent with diverticulum. On precontra st images the cyst is noted to be around 8 counseled units and post contrast the mass enhanc es to 12 units. Overall no suspicion for malignancy. At this time this is an incidental fi nding. No acute surgical intervention is needed and no surveillance. On CT scan the patient was seen to have 2 kidney stones on the left. The largest is 8 mm a nd the other is 4. We discussed that it is likely aorta pass the 4 mm stone he would not ne ed intervention however the millimeter stone in the most likely cause a problem. At this ti me the stone is not causing any obstruction or causing any problem however it is possible th at the stone will present as a problem in the future. If the stone should drop down the ure ter he most likely will explant significant pain and will likely need acute intervention. R ecommended to the patient that the stone should be treated as he is unlikely to pass on his own. This does not need to be done on an urgent basis but as time goes by the stone will en large and become more difficult procedure. At this time the patient declined surgery would like to just watch it. We'll plan for renal ultrasound in 6 months. Urge incontinence: The patient's symptoms are most consistent with urge incontinence. We w ill try oxybutynin 10 mg by mouth daily. We discussed possible dry mouth as well as constip ation and sedation. If this is not effective for the patient will discuss alternative optio ns including other medications as well as Botox and PTNS. Given the patient's urinary symptoms we'll also order a PSA. Candidiasis: And bilateral groin folds patient is noted to have significant erythema as wel l as skin breakdown. This is consistent with East infection. Nystatin cream will be prescr ibed. He still uses 3 times a day. Patient will follow up in 4 weeks to reevaluate his urinary symptoms. Past Medical History Past Medical History: Diagnosis Date Arthritis BPH (benign prostatic hyperplasia) DM (diabetes mellitus) (HCC) Hearing loss HTN (hypertension) Hyperlipidemia Metabolic syndrome Obesity Past Surgical History Past Surgical History: Procedure Laterality Date CHOLECYSTECTOMY COLONOSCOPY 2009 VASECTOMY Family History: Family History Problem Relation Age of Onset Stroke Father Diabetes Mother Stroke Mother Heart attack Mother Social History: Social History Social History Marital status: Spouse name: N/A Number of children: N/A Years of education: N/A Social History Main Topics Smoking status: Current Every Day Smoker Packs/day: 1.50 Smokeless tobacco: None Alcohol use No Drug use: Unknown Sexual activity: Not Asked Other Topics Concern None Social History Narrative None No Known Allergies Medications: Current Outpatient Prescriptions: albuterol-ipratropium (DUONEB) 2.5-0.5 mg/3 mL SOLN, Inhale 3 mLs into the lungs., Dis p: , Rfl: aspirin 81 mg EC tablet, [...] 2 times daily., Disp: , Rfl: insulin detemir (LEVEMIR FLEXTOUCH) 100 units/mL injection (pen), Inject under the sk in nightly., Disp: , Rfl: insulin glargine (LANTUS SOLOSTAR) 100 units/mL injection (pen), Inject 40 Units under the skin., Disp: , Rfl: lisinopril (PRINIVIL, ZESTRIL) 20 [...] mouth., Disp: , Rfl: ROS Objective BP 128/64 | Pulse 77 | Resp 20 | Ht 1.816 m (5' 11.5") | Wt 121.2 kg (267 lb 3.2 oz) | BMI 36.75 kg/m General Appearance: Alert, cooperative, no distress, appears stated age, obese, there appe ars to be a wet spot on the patients pants near the groin Head: Normocephalic, without obvious abnormality, atraumatic Eyes: PERRL, conjunctiva/corneas clear, EOM's intact Throat: Lips, mucosa, and tongue normal; teeth and gums normal Neck: Supple, symmetrical, no adenopathy Lungs: Regular unlabored breathing, no accessory muscle use Chest Wall: No tenderness or deformity Erythematous rash in groin creases with small amount of white discharge. Uncircumcised p hallus, normal meatus, foreskin is wet from incontinence vs post void dribbling. Abdomen: Soft, non-tender, obese, rash in pannus skin fold, it appears the same as the ra sh in the groin creases Extremities: Extremities normal, atraumatic, no cyanosis, clubbing, mild bilateral LE edema Pulses: Radial pulses 2+ and symmetric Skin: Warm and dry Lymph nodes: Cervical and supraclavicular nodes normal Neurologic: Gait normal, CN 2-12 grossly intact; Strength and sensation grossly normal in b ilateral upper and lower extremities Data: CT scan March 13, 2017 I [...] appear to be a c alyceal diverticulum. BMP from 02/26/2017 shows sodium of 133 potassium 4.1 chloride of 11 bicarb 28 be within 19 c reatinine 0.7 to PVR 46mL-normal REVIEW OF SYSTEMS: [] All Negative Constitutional Symptoms: []Fever []Chills []Headache []Change in appetite [] Change in weight [] Change in energy []Other: Neurological: []Tremors []Dizzy Spells [x]Numbness/Tingling []Seizures []Other: Endocrine: [x]Excessive thirst []Too hot [x] Too cold []Tired/Sluggish Gastrointestinal: []Abdominal pain []Nausea/vomiting []Indigestion/heartburn [x]Change in stool size [x] Fiorella nge in stool shape [x] Change in stool color []Pain with swallowing []Other: Cardiovascular: []Chest Pain []Rapid heart rate []High blood pressure []Other: Integumentary: []Skin rash []Boils []Persistent itch []Other: Musculoskeletal: []Neck Pain []Joint swelling/pain []Back pain []Bone pain []Other: Respiratory: [x]Wheezing []Frequent cough [x]Shortness of breath []Other: Hematologic/Lymphatic: []Swollen glands []Blood clotting problems []Prior blood transfusions []Other: Psychologic: Are you generally satisfied with your life? yes Do you feel severely depressed? no Have you considered suicide? no Other: Habits: Do you smoke? yes AUA BPH SYMPTOM SCORE Not at all Less than 1 times in 5 Less than half the time About half the time More than half the time Almost always INCOMPLETE EMPTYING Over the past month, how often have you had the sensation of not empty ing your bladder completely after you finished urinating? [] 0 [] 1 [] 2 [] 3 [x] 4 [] 5 FREQUENCY Over the past month, how often have you had to urinate again less than 2 hours a fter you finished urinating? [] 0 [] 1 [] 2 [] 3 [x] 4 [] 5 INTERMITTENCY Over the past month, how often have you found you stopped and started again several times when you urinated? [] 0 [] 1 [] 2 [] 3 [x] 4 [] 5 URGE TO URINATE Over the past month, how often have you found it difficult to postpone uri nation? [] 0 [] 1 [] 2 [] 3 [x] 4 [] 5 WEAK STREAM Over the past month, how often have you had a weak urinary stream? [] 0 [] 1 [] 2 [] 3 [x] 4 [] 5 STRAINING Over the past month, how often have you had to push or strain to begin urination ? [x] 0 [] 1 [] 2 [] 3 [] 4 [] 5 None 1 time 2 times 3 times 4 times 5 or more times URINATING AT NIGHT Over the past month, how many times did you most typically get up to ur inated from the time you went to bed at night until the time you got up in the morning? [] 0 [] 1 [] 2 [] 3 [x] 4 [] 5 Symptom Score: Mild 1-7, Moderate 8-19, Severe 20-35 TOTAL: 24 BOTHER SCORE DUE TO URINARY SYMPTOMS Delighted Pleased Mostly Satisfied Mixed Mostly dissatisfied Unhappy Terrible BOTHERSOMENESS OF URINARY SYMPTOMS How would you feel if you had to live with your urinary condition the way it is now, no better, no worse, for the rest of your life? [] 0 [] 1 [] 2 [x] 3 [] 4 [] 5 [] 6 Results for orders placed or performed in visit on 04/21/17 POCT Urinalysis Dipstick Automated Result Value Ref Range Color, UA, POC Yellow Yellow, Light Yellow Clarity, UA, POC Clear Glucose, UA, POC Negative Negative Bilirubin, UA, POC Negative Negative Ketones, UA, POC Negative Negative, 100 mg/dL Specific [place], UA, POC 1.005 1.001 - 1.030 Blood, UA, POC Negative Negative pH, UA, POC 6.0 5.0, 6.0, 7.0, 8.0, 5.5, 6.5, 7.5 Protein, UA, POC Negative Negative Urobilinogen, UA, POC 0.2 0.2, Negative, Normal, < 0.2 mg/dL, 1 mg/dL, < 0.2 E.U./dl, 1.0 E.U./dL, 0.2 mg/dL Nitrite, UA, POC Negative Negative Leukocyte Esterase, UA, POC Negative Negative RED SUB UA ICTOTEST Negative REMARK No results found for: JAY Burch MD's notes were reviewed in clinic today. Return in about 4 weeks (around 05/19/2017).. CC: Kaylene Burch MD documented in this encounter Plan of Treatment Not on filedocumented as of this encounter Procedures + +--------+ + + + | Procedure Name | Priori | Date/Time | Associated Diagnosis | Comments | | | ty | | | | + +--------+ + + + | POCT URINALYSIS, | Routin | 04/21/2017 | Right kidney mass | Results for this | | AUTO WITH CONF | e | 3:36 PM | Post-void dribbling | procedure are in the | | | | PDT | | results section. | + +--------+ + + + | IMAGING REPORT - | | 04/21/2017 | | Results for this | | EXTERNAL SCAN | | 12:00 AM | | procedure are in the | | | | PDT | | results section. | + +--------+ + + + | IMAGING REPORT - | | 04/21/2017 | | Results for this | | EXTERNAL SCAN | | 12:00 AM | | procedure are in the | | | | PDT | | results section. | + +--------+ + + + documented in this encounter Results PSA, Diagnostic (04/21/2017 4:57 PM PDT) + +-------+ + + + | Component | Value | Ref Range | Performed | Pathologist | | | | | At | Signature | + +-------+ + + + | PSA | 0.47 | <=4.00 ng/mL | [facility] | | | | | | [facility] | | [facility] - | | | | | | [facility]ATORY | | + +-------+ + + + + + | Specimen | + + | Blood | + + + + + + + | Performing | Address | City/State/Zipcode | Phone Number | | Organization | | | | + + + + + | [facility] | [address] | [place] | [phone] | | [facility] | | [address] | | | - LABORATORY | | | | + + + + + POCT Urinalysis Dipstick Automated (04/21/2017 3:36 PM PDT) + + + + + + | Component | Value | Ref Range | Performed | Pathologist | | | | | At | Signature | + + + + + + | Color, UA, | Yellow | Yellow, Light | | | | POC | | Yellow | | | + + + + + + | Clarity, | Clear | | | | | UA, POC | | | | | + + + + + + | Glucose, | Negative | Negative | | | | UA, POC | | | | | + + + + + + | Bilirubin, | Negative | Negative | | | | UA, POC | | | | | + + + + + + | Ketones, | Negative | Negative, 100 | | | | UA, POC | | mg/dL | | | + + + + + + | Specific | 1.005 | 1.001 - 1.030 | | | | [place], | | | | | | UA, POC | | | | | + + + + + + | Blood, UA, | Negative | Negative | | | | POC | | | | | + + + + + + | pH, UA, POC | 6.0 | 5.0, 6.0, 7.0, | | | | | | 8.0, 5.5, 6.5, | | | | | | 7.5 | | | + + + + + + | Protein, | Negative | Negative | | | | UA, POC | | | | | + + + + + + | Urobilinoge | 0.2 | 0.2, Negative, | | | | n, UA, POC | | Normal, < 0.2 | | | | | | mg/dL, 1 mg/dL, | | | | | | < 0.2 E.U./dl, | | | | | | 1.0 E.U./dL, | | | | | | 0.2 mg/dL | | | + + + + + + | Nitrite, | Negative | Negative | | | | UA, POC | | | | | + + + + + + | Leukocyte | Negative | Negative | | | | Esterase, | | | | | | UA, POC | | | | | + + + + + + | Reducing | | | | | | Substances, | | | | | | Urine | | | | | + + + + + + | Bilirubin | | Negative | | | | Confirmatio | | | | | | n by | | | | | | Ictotest, | | | | | | Urine | | | | | + + + + + + | Remark | | | | | + + + + + + + + | Specimen | + + | Urine | + + IMAGING REPORT - EXTERNAL SCAN (04/21/2017 12:00 AM PDT) + + + | Narrative | Performed At | + + + | Ordered by an | | | unspecified provider. | | + + + IMAGING REPORT - EXTERNAL SCAN (04/21/2017 12:00 AM PDT) + + + | Narrative | Performed At | + + + | Ordered by an | | | unspecified provider. | | + + + documented in this encounter Visit Diagnoses + + | Diagnosis | + + | Right kidney mass - Primary Unspecified disorder of kidney and ureter | + + | Post-void dribbling | + + | Urge incontinence | + + | Benign prostatic hyperplasia with weak urinary stream | + + | Candidiasis Candidiasis of unspecified site | + + | Kidney stones Calculus of kidney | + + documented in this encounter
--- OUTSIDE RECORDS SUMMARY | ~2020-01-30 | XMS | Encounter Summary ---
Demographics + + + | Address | [address] | | | [place] [address] | + + + | Home Phone | | + + + | Preferred Language | Unknown | + + + | Marital Status | | + + + | Worship Affiliation | Unknown | + + + | Race | Unknown | + + + | Ethnic Group | Unknown | + + + Author + + + | Author | [facility] | | | and [place] | + + + | Organization | [facility] | | | and [place] | + + + | Address | Unknown | + + + | Phone | Unavailable | + + + Support + + + + + | Name | Relationship | Address | Phone | + + + + + | Liudmila Chang | ECON | [address] | | | | | [place] | | | | | [address] | | + + + + + Care Team Providers + +------+ + | Care Figure Refinisher And Repairer Name | Role | Phone | + [...] Unknown | | | | | [place] | [phone] | | | | | [address] | | | | | | [phone] | | | +--------+ + + + [...] +--------+ + + + | CT CHEST W CONTRAST | Routin | 11/11/2015 | | Results for this | | | e | 12:56 PM | | procedure are in the | | | | PDT | | results section. | + +--------+ + + + documented in this encounter Results CT Chest w Contrast (11/11/2015 12:56 PM PDT) + + | Specimen | [...]
--- OUTSIDE RECORDS SUMMARY | ~2020-01-30 | XMS | Encounter Summary ---
Demographics + + + | Address | [address] | | | [place] [address] | + + + | Home Phone | | + + + | Preferred Language | Unknown | + + + | Marital Status | | + + + | Episcopal Affiliation | Unknown | + + + | Race | Unknown | + + + | Ethnic Group | Unknown | + + + Author + + + | Author | [facility] | | | and [place] | + + + | Organization | [facility] | | | and [place] | + + + | Address | Unknown | + + + | Phone | Unavailable | + + + Support + + + + + | Name | Relationship | Address | Phone | + + + + + | Liudmila Chang | ECON | [address] | | | | | [place] | | | | | [address] | | + + + + + Care Team Providers + +------+ + | Care Sales Associate Name | Role | Phone | + [...] | | anth | [place], | [place] [address] | | | | | Procedures | [place] [address] | Phone: | | | | | NEW PATIENT | Phone: | [phone] | | | | | | [phone] | Fax: | | | | | | Fax: | [phone] | | | | | | [phone] | | +--------+--------+ + + + + Encounter Details +--------+---------+ + + + | Date | Type | Department | Care Team | Description | +--------+---------+ + + + | 05/10/ | Office | [facility] | Christopher Henson MD | Thyroid nodule | | 2014 | Visit | OTOLARYNGOLOGY [address] | [address] | (Primary Dx); | | | | [address] | [address] [place] | Nontoxic uninodular | | | | [place], [place] | [place] [address] | goiter | | | | [address] | [phone] | | | | | [phone] | | | +--------+---------+ + + + [...] MD - 05/10/2015 4:01 PM PST [facility] OT[facility]Y [address] [facility] [address] OFFICE NOTE CHRISTOPHER HENSON MD Patient: GALINDO CHANG Admitting: MR #: [id number] LOC: PT TYPE: Adm Date: 05/10/2015 : [...] his speech. 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
--- OUTSIDE RECORDS SUMMARY | ~2020-01-30 | XMS | Encounter Summary ---
Demographics + + + | Address | [address] | | | [place] [address] | + + + | Home Phone | | + + + | Preferred Language | Unknown | + + + | Marital Status | | + + + | Pentecostal Affiliation | Unknown | + + + | Race | Unknown | + + + | Ethnic Group | Unknown | + + + Author + + + | Author | [facility] | | | and [place] | + + + | Organization | [facility] | | | and [place] | + + + | Address | Unknown | + + + | Phone | Unavailable | + + + Support + + + + + | Name | Relationship | Address | Phone | + + + + + | Liudmila Chang | ECON | [address] | | | | | [place] | | | | | [address] | | + + + + + Care Team Providers + +------+ + | Care Global Technical Writer Name | Role | Phone | + +------+ + | Kaylene Burch MD | PCP | | + +------+ + Encounter Details +--------+ + + + + | Date | Type | Department | Care Team | Description | +--------+ + + + + | 05/09/ | Abstract | [facility] [place] | Christopher Kim MD | | | 2014 | | OTOLARYNGOLOGY [address] | [address] | | | | | [address] | [address] [place] | | | | | [place], [place] | [place] [address] | | | | | [address] | [phone] | | | | | [phone] | | | +--------+ + + + [...]
--- OUTSIDE RECORDS SUMMARY | ~2020-01-30 | XMS | Encounter Summary ---
Demographics + + + | Address | [address] | | | [place] [address] | + + + | Home Phone | | + + + | Preferred Language | Unknown | + + + | Marital Status | | + + + | Temple Affiliation | Unknown | + + + | Race | Unknown | + + + | Ethnic Group | Unknown | + + + Author + + + | Author | [facility] | | | and [place] | + + + | Organization | [facility] | | | and [place] | + + + | Address | Unknown | + + + | Phone | Unavailable | + + + Support + + + + + | Name | Relationship | Address | Phone | + + + + + | Liudmila Chang | ECON | [address] | | | | | [place] | | | | | [address] | | + + + + + Care Team Providers + +------+ + | Care Floor Nurse Name | Role | Phone | + [...] [address] [place] | | | | | [place], [place] | [place] [address] | | | | | [address] | [phone] | | | | | [phone] | | | +--------+ + + + [...]
--- OUTSIDE RECORDS SUMMARY | ~2020-01-30 | XMS | Encounter Summary ---
Demographics + + + | Address | [address] | | | [place] [address] | + + + | Home Phone | | + + + | Preferred Language | Unknown | + + + | Marital Status | | + + + | Sabianist Affiliation | Unknown | + + + | Race | Unknown | + + + | Ethnic Group | Unknown | + + + Author + + + | Author | [facility] | | | and [place] | + + + | Organization | [facility] | | | and [place]ana | + + + | Address | Unknown | + + + | Phone | Unavailable | + + + Support + + + + + | Name | Relationship | Address | Phone | + + + + + | Liudmila Chang | ECON | [address] | | | | | [place] | | | | | [address] | | + + + + + Care Team Providers + +------+ + | Care Carton Maker Name | Role | Phone | + +------+ + | Kaylene Burch MD | PCP | | + +------+ + Encounter Details +--------+ + + + + | Date | Type | Department | Care Team | Description | +--------+ + + + + | 08/05/ | Orders Only | [facility] | Conversion | | | 2016 | | NEPHROLOGY [place] | Transaction, | | | | | [address] [facility] [facility] [place] | Provider Unknown | | | | | [address] [place] | | | | | | [phone] | (Fax) | | | | | [phone] | | | +--------+ + + + [...] | + +--------+ + + + | EXTERNAL LAB: CBC | Routin | 08/05/2016 | | Results for this | | | e | 8:40 AM | | procedure are in the | | | | PST | | results section. | + +--------+ + + + | URINALYSIS, | Routin | 08/05/2016 | | Results for this | | MICROSCOPIC ONLY | e | 8:40 AM | | procedure are in the | | | | PST | | results section. | + +--------+ + + + | PROTEIN/CREATININE | Routin | 08/05/2016 | | Results for this | | RATIO, URINE | e | 8:40 AM | | procedure are in the | | | | PST | | results section. | + +--------+ + + + | URIC ACID | Routin | 08/05/2016 | | Results for this | | | e | 8:40 AM | | procedure are in the | | | | PST | | results section. | + +--------+ + + + | MAGNESIUM | Routin | 08/05/2016 | | Results for this | | | e | 8:40 AM | | procedure are in the | | | | PST | | results section. | + +--------+ + + + | BASIC METABOLIC | Routin | 08/05/2016 | | Results for this | | PANEL | e | 8:40 AM | | procedure are in the | | | | PST | | results section. | + +--------+ + + + documented in this encounter Results Protein/Creatinine Ratio, Urine (08/05/2016 8:40 AM PST) + + + + + + | Component | Value | Ref Range | Performed | Pathologist | | | | | At | Signature | + + + + + + | Protein/Cre | 1040.4 (A) | 0 - 150 | EXTERNAL | | | at Ratio | | | LAB | | [...] | | | + +---------+ + + Urinalysis, Microscopic Only (08/05/2016 8:40 AM PST) + + + + + + | Component | Value | Ref Range | Performed | Pathologist | | | | | At | Signature | + + + + + + | Color | Linh | | EXTERNAL | | | | | | LAB | | + + + + + + | Clarity, | Clear | | EXTERNAL | | | Urine | | | LAB | | + + + + + + | Specific | 1.021 | 1.005 - 1.030 | EXTERNAL | | | [place], | | | LAB | | | Urine | | | | | + + + + + + | Leukocyte | Negative | | EXTERNAL | | | Esterase, | | | LAB | | | Urine | | | | | + + + + + + | Nitrite, | Negative | | EXTERNAL | | | Urine | | | LAB | | + + + + + + | Urobilinoge | Comment: 4 | | EXTERNAL | | | n, Urine | | | LAB | | + + + + + + | Protein, | Comment: 75 | | EXTERNAL | | | Urine | | | LAB | | + + + + + + | pH, Urine | 7 | 5 - 9 | EXTERNAL | | | | | | LAB | | + + + + + + | Blood, | Negative | | EXTERNAL | | | Urine | | | LAB | | + + + + + + | Ketones | Negative | | EXTERNAL | | | | | | LAB | | + + + + + + | Bilirubin, | Negative | | EXTERNAL | | | Urine | | | LAB | | + + + + + + | Glucose, | Comment: 1000 | | EXTERNAL | | | Urine | | | LAB | | + + + + + + + + | Specimen | + + | Urine specimen | | (specimen) | + + + +---------+ + + | Performing | Address | City/State/Zipcode | Phone Number | | Organization | | | | + +---------+ + + | EXTERNAL LAB | | | | + +---------+ + + External Lab: LEE (08/05/2016 8:40 AM PST) + + + + + + | Component | Value | Ref Range | Performed | Pathologist | | | | | At | Signature | + + + + + + | WBC | 10.4 | 4.5 - 11.0 10 | EXTERNAL | | | | | | LAB | | + + + + + + | Non- | 6.33 (A) | 4.3 - 5.7 10 | EXTERNAL | | | Red Blood | | | LAB | | | Cells | | | | | | Counted | | | | | + + + + + + | Hemoglobin | 18.8 (A) | 13.5 - 18.0 | EXTERNAL | | | | | g/dL | LAB | | + + + + + + | Hematocrit, | 57.8 (A) | 41 - 50 % | EXTERNAL | | | POC | | | LAB | | + + + + + + | MCV | 91.6 | 81 - 99 fL | EXTERNAL | | | | | | LAB | | + + + + + + | MCH | 30 | 27 - 33 pg | EXTERNAL | | | | | | LAB | | + + + + + + | MCHC | 33 | 30 - 36 g/dL | EXTERNAL | | | | | | LAB | | + + + + + + | Platelet | 182 | 140 - 440 K/ L | EXTERNAL | | | Count | | | LAB | | | Plasma | | | | | + + + + + + | RDW-CV | 17.0 (A) | 10.5 - 15.0 % | EXTERNAL | | | | | | LAB | | + + + + + + | MPV | | fL | EXTERNAL | | | | | | LAB | | + + + + + + | Differentia | | | EXTERNAL | | | l Type | | | LAB | | + + + + + + | % Segmented | | % | EXTERNAL | | | | | | LAB | | | Neutrophils | | | | | + + + + + + | % | | % | EXTERNAL | | | Lymphocytes | | | LAB | | + + + + + + | % Monocytes | | % | EXTERNAL | | | | | | LAB | | + + + + + + | % | | % | EXTERNAL | | | Eosinophils | | | LAB | | + + + + + + | % Basophils | | % | EXTERNAL | | | | | | LAB | | + + + + + + | Absolute | | / L | EXTERNAL | | | Segmented | | | LAB | | | Neutrophils | | | | | + + + + + + | Absolute | | / L | EXTERNAL | | | Lymphocytes | | | LAB | | + + + + + + | Absolute | | / L | EXTERNAL | | | Monocytes | | | LAB | | + + + + + + | Absolute | | / L | EXTERNAL | | | Eosinophils | | | LAB | | + + + + + + | Absolute | | / L | EXTERNAL | | | Basophils | | | LAB | | + + + + + + + + | Specimen | + + | Blood specimen | | (specimen) | + + + +---------+ + + | Performing | Address | City/State/Zipcode | Phone Number | | Organization | | | | + +---------+ + + | EXTERNAL LAB | | | | + +---------+ + + Uric Acid (08/05/2016 8:40 AM PST) + +---------+ + + + | Component | Value | Ref Range | Performed | Pathologist | | | | | At | Signature | + +---------+ + + + | Uric Acid | 7.9 (A) | 4.4 - 7.6 | EXTERNAL | | | | | [...] | | | + +---------+ + + Magnesium (08/05/2016 8:40 AM PST) + +-------+ + + + | Component | Value | Ref Range | Performed | Pathologist | | | | | At | Signature | + +-------+ + + + | Magnesium | 1.9 | 1.7 - 2.5 mg/dL | EXTERNAL | | | | [...] | | | + +---------+ + + Basic Metabolic Panel (08/05/2016 8:40 AM PST) + +---------+ + + + | Component | Value | Ref Range | Performed | Pathologist | | | | | At | Signature | + +---------+ + + + | Glucose, | 268 (A) | 70 - 100 mg/dL | EXTERNAL | | | Fasting | | | LAB | | + +---------+ + + + | BUN | 20 | 6 - 23 mg/dL | EXTERNAL | | | | | | LAB | | + +---------+ + + + | Creatinine | 0.85 | 0.70 - 1.25 | EXTERNAL | | | | | mg/dL | LAB | | + +---------+ + + + | BUN/Creatin | 23.5 | 6.0 - 28.6 | EXTERNAL | | | ine Ratio | | | LAB | | + +---------+ + + + | Calcium | 9.4 | 8.4 - 10.2 | EXTERNAL | | | | | mg/dL | LAB | | + +---------+ + + + | Na | 136 | 132 - 143 | EXTERNAL | | | | | mmol/L | LAB | | + +---------+ + + + | K | 4.8 | 3.6 - 5.1 | EXTERNAL | | | | | mmol/L | LAB | | + +---------+ + + + | Cl | 93 (A) | 95 - 112 mmol/L | EXTERNAL | | | | | | LAB | | + +---------+ + + + | CO2 | 30 | 19 - 31 mmol/L | EXTERNAL | | | | | | LAB | | + +---------+ + + + | Anion Gap | 17.8 | 7 - 21 mmol/L | EXTERNAL | | | | | | LAB | | + +---------+ + + + | Estimated | 92 | mg/dL | EXTERNAL | | | [...]
--- OUTSIDE RECORDS SUMMARY | ~2020-01-30 | XMS | Encounter Summary ---
Demographics + + + | Address | [address] | | | [place] [address] | + + + | Home Phone | | + + + | Preferred Language | Unknown | + + + | Marital Status | | + + + | Zoroastrian Affiliation | Unknown | + + + | Race | Unknown | + + + | Ethnic Group | Unknown | + + + Author + + + | Author | [facility] | | | and [place] | + + + | Organization | [facility] | | | and [place] | + + + | Address | Unknown | + + + | Phone | Unavailable | + + + Support + + + + + | Name | Relationship | Address | Phone | + + + + + | Liudmila Chang | ECON | [address] | | | | | [place] | | | | | [address] | | + + + + + Care Team Providers + +------+ + | Care Front End Engineer Name | Role | Phone | + [...] [address] | | | | | [place], [place] | [place] [address] | | | | | [phone] | [phone] | | | | | [phone] | | | +--------+ + + + [...]
--- OUTSIDE RECORDS SUMMARY | ~2020-01-30 | XMS | Encounter Summary ---
Demographics + + + | Address | [address] | | | [place] [address] | + + + | Home Phone | | + + + | Preferred Language | Unknown | + + + | Marital Status | | + + + | Restoration Affiliation | Unknown | + + + | Race | Unknown | + + + | Ethnic Group | Unknown | + + + Author + + + | Author | [facility] | | | and [place] | + + + | Organization | [facility] | | | and [place] | + + + | Address | Unknown | + + + | Phone | Unavailable | + + + Support + + + + + | Name | Relationship | Address | Phone | + + + + + | Liudmila Chang | ECON | [address] | | | | | [place] | | | | | [address] | | + + + + + Care Team Providers + +------+ + | Care Research And Evaluation Analyst Name | Role | Phone | + +------+ + PCP | Unavailable | + +------+ + Encounter Details +--------+ + + + + | Date | Type | Department | Care Team | Description | +--------+ + + + + | 08/01/ | Hospital | [facility] | Conversion | Neck pain | | 2015 | Encounter | CONVERSION DEP [address] | Transaction, | | | | | [address] | Provider Unknown | | | | | [facility] | [phone] | | | | | [phone] | | | | | | [phone] | | | +--------+ + + + + Social History + +-------+ +--------+------+ | Tobacco Use | Types | Packs/Day | Years | Date | | | | | Used | | + +-------+ +--------+------+ | Never Assessed | | | | | + +-------+ +--------+------+ + + + | Sex Assigned at [...] | + +--------+ + + + | MRI CERVICAL SPINE | Routin | 07/13/2014 | | Results for this | | WO CONTRAST | e | 5:51 PM | | procedure are in the | | | | PST | | results section. | + +--------+ + + + documented in this encounter Results MRI Cervical Spine wo Contrast (07/13/2014 5:51 PM PST) + + | Specimen | + + | | + + + + + | Narrative | Performed At | + + + | This is a non-reportable procedure without a radiologist report and | | | is used for image storage only | | + + + + + | Procedure Note | + + | Faustino Griffith Brandy - 02/04/2019 7:22 AM PDT This is a non-reportable procedure | | without a radiologist report and isused for image storage only | + + documented in this encounter Visit Diagnoses + + | Diagnosis | + + | Neck pain Cervicalgia | + + documented in this encounter"
--- OUTSIDE RECORDS SUMMARY | ~2020-01-30 | XMS | Encounter Summary ---
Demographics + + + | Address | [address] | | | [place] [address] | + + + | Home Phone | | + + + | Preferred Language | Unknown | + + + | Marital Status | | + + + | Baptism Affiliation | Unknown | + + + | Race | Unknown | + + + | Ethnic Group | Unknown | + + + Author + + + | Author | [facility] | | | and [place] | + + + | Organization | [facility] | | | and [place] | + + + | Address | Unknown | + + + | Phone | Unavailable | + + + Support + + + + + | Name | Relationship | Address | Phone | + + + + + | Liudmila Chang | ECON | [address] | | | | | [place] | | | | | [address] | | + + + + + Care Team Providers + +------+ + | Care Marketing Financial Analyst Name | Role | Phone | + +------+ + | Kaylene Burch MD | PCP | | + +------+ + Encounter Details +--------+ + + + + | Date | Type | Department | Care Team | Description | +--------+ + + + + | 02/24/ | Orders Only | [facility] | Avery Keating MD | | | 2017 | | NEPHROLOGY [place] | [address] [place] | | | | | [address] [place] | [address] [place], [place] | | | | | [address] [place], [place] | [address] | | | | | [address] | | | | | | [phone] | | | +--------+ + + + [...] | EXTERNAL LAB: CBC | Routin | 02/24/2017 | | Results for this | | | e | 11:50 AM | | procedure are in the | | | | PDT | | results section. | + +--------+ + + + | URINALYSIS WITH | Routin | 02/24/2017 | | Results for this | | MICROSCOPIC IF | e | 11:50 AM | | procedure are in the | | INDICATED | | PDT | | results section. | + +--------+ + + + | PROTEIN/CREATININE | Routin | 02/24/2017 | | Results for this | | RATIO, URINE | e | 11:50 AM | | procedure are in the | | | | PDT | | results section. | + +--------+ + + + | BASIC METABOLIC | Routin | 02/24/2017 | | Results for this | | PANEL | e | 11:50 AM | | procedure are in the | | | | PDT | | results section. | + +--------+ + + + documented in this encounter Results Protein/Creatinine Ratio, Urine (02/24/2017 11:50 AM PDT) + + + + + + | Component | Value | Ref Range | Performed | Pathologist | | | | | At | Signature | + + + + + + | Protein/Cre | 1273.9 (A) | 0 - 150 | EXTERNAL [...] | | | + +---------+ + + Urinalysis with Microscopic if Indicated (02/24/2017 11:50 AM PDT) + + + + + + | Component | Value | Ref Range | Performed | Pathologist | | | | | At | Signature | + + + + + + | Color | Yellow | | EXTERNAL | | | | | | LAB | | + + + + + + | Clarity, | Clear | | EXTERNAL | | | Urine | | | LAB | | + + + + + + | Spec Grav, | 1.020 | 1.005 - 1.030 | EXTERNAL | | | Fluid | | | LAB | | + [...] + + + + | Urobilinoge | Normal | | EXTERNAL | | | n, Urine | | | LAB | | + + + + + + | Total | 100 | | EXTERNAL | | | Protein | | | LAB | | + + + + + + | pH, Urine | 6.0 | 5 - 9 | EXTERNAL | | | | | | LAB | | + + + + + + | Blood, | Comment: Trace | | EXTERNAL | | | Urine [...] | + +---------+ + + External Lab: CBC (02/24/2017 11:50 AM PDT) + + + + + + | Component | Value | Ref Range | Performed | Pathologist | | | | | At | Signature | + + + + + + | WBC | 11.2 (A) | 4.5 - 11.0 10 | EXTERNAL | | | | | | LAB | | + + + + + + | Non- | 5.84 (A) | 4.3 - 5.7 10 | EXTERNAL | | | Red Blood | | | LAB | | | Cells | | | | | | Counted | | | | | + + + + + + | Hemoglobin | 17.5 | 13.5 - 18.0 | EXTERNAL | | | | | g/dL | LAB | | + + + + + + | Hematocrit, | 52.9 (A) | 41 - 50 % | EXTERNAL | | | POC | | | LAB | | + + + + + + | MCV | 90.7 | 81 - 99 fL | EXTERNAL [...] + + + + | Platelet | 147 | 140 - 440 K/ L | EXTERNAL | | | Count | | | LAB | | | Plasma | | | | | + + + + + + | RDW-CV | 14.7 | 10.5 - 15.0 % | EXTERNAL [...] + +---------+ + + Basic Metabolic Panel (02/24/2017 11:50 AM PDT) + +---------+ + + + | Component | Value | Ref Range | Performed | Pathologist | | | | | At | Signature | + +---------+ + + + | Glucose, | 363 (A) | 70 - 100 mg/dL | EXTERNAL | | | Fasting | | | LAB | | + +---------+ + + + | BUN | 14 | 6 - 23 mg/dL | EXTERNAL | | | | | | LAB | | + +---------+ + + + | Creatinine | 0.72 | 0.70 - 1.25 | EXTERNAL | | | | | mg/dL | LAB | | + +---------+ + + + | BUN/Creatin | 19.4 | 6.0 - 28.6 | EXTERNAL | | | ine Ratio | | | LAB | | + +---------+ + + + | Calcium | 9.3 | 8.4 - 10.2 | EXTERNAL | | | | | mg/dL | LAB | | + +---------+ + + + | Na | 133 | 132 - 143 | EXTERNAL | | | | | mmol/L | LAB | | + +---------+ + + + | K | 4.1 | 3.6 - 5.1 | EXTERNAL | | | | | mmol/L | LAB | | + +---------+ + + + | Cl | 101 | 95 - 112 mmol/L | EXTERNAL | | | | | | LAB | | + +---------+ + + + | CO2 | 28 | 19 - 31 mmol/L | EXTERNAL | | | | | | LAB | | + +---------+ + + + | Anion Gap | 8.1 | 7 - 21 mmol/L | EXTERNAL | | | | | | LAB | | + +---------+ + + + | Estimated | 111 | mg/dL | EXTERNAL | | | [...]
--- OUTSIDE RECORDS SUMMARY | ~2020-01-30 | XMS | Encounter Summary ---
Demographics + + + | Address | [address] | | | [place] [address] | + + + | Home Phone | | + + + | Preferred Language | Unknown | + + + | Marital Status | | + + + | Congregation Affiliation | Unknown | + + + | Race | Unknown | + + + | Ethnic Group | Unknown | + + + Author + + + | Author | [facility] | | | and [place] | + + + | Organization | [facility] | | | and [place] | + + + | Address | Unknown | + + + | Phone | Unavailable | + + + Support + + + + + | Name | Relationship | Address | Phone | + + + + + | Liudmila Chang | ECON | [address] | | | | | [place] | | | | | [address] | | + + + + + Care Team Providers + +------+ + | Care Haz Tech Name | Role | Phone | + [...] Unknown | | | | | [place] | [id number] | | | | | [phone] | | | | | | [phone] | | | +--------+ + + + [...] | + +--------+ + + + | XR CHEST 2 VIEWS | Routin | 11/15/2004 | | Results for this | | | e | 11:28 PM | | procedure are in the | | | | PDT | | results section. | + +--------+ + + + documented in this encounter Results XR Chest 2 Vws (11/15/2004 11:28 PM PDT) + + | Specimen | [...]
--- OUTSIDE RECORDS SUMMARY | ~2020-01-30 | XMS | Encounter Summary ---
Demographics + + + | Address | [address] | | | [place] [address] | + + + | Home Phone [...] Author | [facility] | | | and [place] | + + + | Organization | [facility] | | | and [place] | + + + | Address | Unknown | + + + | Phone | Unavailable | + + + Support + + + + + | Name | Relationship | Address | Phone | + + + + + | Liudmila Chang | ECON | [address] | | | | | [place] | | | | | [address] | | + + + + + Care Team Providers + +------+ + | Care Rim Fire Priming Operator Name | Role | Phone | + +------+ + | Kaylene Burch MD | PCP | | + +------+ + Encounter Details +--------+ + + + + | Date | Type | Department | Care Team | Description | +--------+ + + + + | 06/06/ | Orders Only | [facility] | Conversion | | | 2015 | | NEPHROLOGY [place] | Transaction, | | | | | [address] [facility] [address] | Provider Unknown | | | | | [address] [place] | | | | | | [address] | (Fax) | | | | | [phone] | | | +--------+ + + + [...] | EXTERNAL LAB: CBC | Routin | 06/06/2016 | | Results for this | | | e | 2:53 PM | | procedure are in the | | | | PST | | results section. | + +--------+ + + + | TSH | Routin | 06/06/2016 | | Results for this | | | e | 2:53 PM | | procedure are in the | | | | PST | | results section. | + +--------+ + + + | COMPREHENSIVE | Routin | 06/06/2016 | | Results for this | | METABOLIC PANEL | e | 2:53 PM | | procedure are in the | | | | PST | | results section. | + +--------+ + + + documented in this encounter Results External Lab: CBC (06/06/2016 2:53 PM PST) + + + + + + | Component | Value | Ref Range | Performed | Pathologist | | | | | At | Signature | + + + + + + | WBC | 13.0 (A) | 4.5 - 11.0 10 | EXTERNAL | | | | | | LAB | | + + + + + + | Non- | 5.5 | 4.2 - 6.2 10 | EXTERNAL | | | Red Blood | | | LAB | | | Cells | | | | | | Counted | | | | | + + + + + + | Hemoglobin | 16.0 | 13.5 - 17.5 | EXTERNAL | | | | | g/dL | LAB | | + + + + + + | Hematocrit, | 48.7 | 40.0 - 50.0 % | EXTERNAL | | | POC | | | LAB | | + + + + + + | MCV | 89.1 | 80 - 100 fL | EXTERNAL | | | | | | LAB | | + + + + + + | MCH | 29.2 | 25.0 - 34.0 pg | EXTERNAL | | | | | | LAB | | + + + + + + | MCHC | 32.8 | 32.0 - 36.0 | EXTERNAL | | | | | g/dL | LAB | | + + + + + + | Platelet | 167 | 150 - 450 K/ L | EXTERNAL | | | Count | | | LAB | | | Plasma | | | | | + + + + + + | RDW-CV | 15.9 (A) | 11.5 - 15.5 % | EXTERNAL | | | | [...] | | | + +---------+ + + TSH (06/06/2016 2:53 PM PST) + +-------+ + + + | Component | Value | Ref Range | Performed | Pathologist | | | | | At | Signature | + +-------+ + + + | TSH | 1.06 | 0.35 - 4.94 | EXTERNAL | | | | | uIU/mL | LAB | | + +-------+ + + + + + | Specimen | + + | Blood specimen | | (specimen) | + + + +---------+ + + | Performing | Address | City/State/Zipcode | Phone Number | | Organization | | | | + +---------+ + + | EXTERNAL LAB | | | | + +---------+ + + Comprehensive Metabolic Panel (06/06/2016 2:53 PM PST) + + + + + + | Component | Value | Ref Range | Performed | Pathologist | | | | | At | Signature | + + + + + + | Glucose, | 327 (A) | 84 - 110 mg/dL | EXTERNAL | | | Fasting | | | LAB | | + + + + + + | BUN | 33 (A) | 8.4 - 21 mg/dL | EXTERNAL | | | | | | LAB | | + + + + + + | Creatinine | 1.37 (A) | 0.64 - 1.27 | EXTERNAL | | | | | mg/dL | LAB | | + + + + + + | BUN/Creatin | | | EXTERNAL | | | ine Ratio | | | LAB | | + + + + + + | Calcium | 9.4 | 8.2 - 10.6 | EXTERNAL | | | | | mg/dL | LAB | | + + + + + + | Protein, | 7.7 | 6.0 - 8.0 g/dL | EXTERNAL | | | Total | | | LAB | | + + + + + + | Albumin | 3.6 | 3.0 - 4.9 | EXTERNAL | | | | | | LAB | | + + + + + + | Globulin | 4.1 (A) | 2.3 - 3.5 | EXTERNAL | | | | | | LAB | | + + + + + + | A/G Ratio | 0.9 (A) | 1.10 - 1.80 | EXTERNAL | | | | | | LAB | | + + + + + + | Bilirubin | 0.6 | 0.2 - 1.2 mg/dL | EXTERNAL | | | Total | | | LAB | | + + + + + + | ALP, | 93 | 40 - 150 | EXTERNAL | | | External | | | LAB | | + + + + + + | ALT | 11 | 0 - 55 U/L | EXTERNAL | | | | | | LAB | | + + + + + + | AST | 12 | 5 - 34 U/L | EXTERNAL | | | | | | LAB | | + + + + + + | Na | 137 | 136 - 145 | EXTERNAL | | | | | mmol/L | LAB | | + + + + + + | K | 4.9 (A) | 3.5 - 4.5 | EXTERNAL | | | | | mmol/L | LAB | | + + + + + + | Cl | 98 | 98 - 107 mmol/L | EXTERNAL | | | | | | LAB | | + + + + + + | CO2 | 30 | 22 - 32 mmol/L | EXTERNAL | | | | | | LAB | | + + + + + + | Anion Gap | 9.0 | 5 - 12 mmol/L | EXTERNAL | | | | | | LAB | | + + + + + + | Estimated | 53 (A) | 60 - 140 mg/dL | EXTERNAL | | | GFR [...]
--- OUTSIDE RECORDS SUMMARY | ~2020-01-30 | XMS | Encounter Summary ---
Demographics + + + | Address | [address] | | | [place] [address] | + + + | Home Phone | | + + + | Preferred Language | Unknown | + + + | Marital Status | | + + + | Caodaism Affiliation | Unknown | + + + | Race | Unknown | + + + | Ethnic Group | Unknown | + + + Author + + + | Author | [facility] | | | and [place] | + + + | Organization | [facility] | | | and [place] | + + + | Address | Unknown | + + + | Phone | Unavailable | + + + Support + + + + + | Name | Relationship | Address | Phone | + + + + + | Liudmila Chang | ECON | [address] | | | | | [place] | | | | | [phone] | | + + + + + Care Team Providers + +------+ + | Care Zipper Machine Operator Name | Role | Phone | + +------+ + | Kaylene Burch MD | PCP | | + +------+ + Encounter Details +--------+ + + + + | Date | Type | Department | Care Team | Description | +--------+ + + + + | 12/04/ | Hospital | C GENERIC IP | Conversion | Pain | | 2016 | Encounter | CONVERSION [address] | Transaction, | | | | | [address] | Provider Unknown | | | | | [place] | [phone] | | | | | [phone] | | | | | | [phone] | | | +--------+ + + + [...] + +--------+ + + + | CT HEAD WO CONTRAST | Routin | 02/14/2011 | | Results for this | | | e | 10:53 AM | | procedure are in the | | | | PDT | | results section. | + +--------+ + + + documented in this encounter Results CT Head wo Contrast (02/14/2011 10:53 AM PDT) + + | Specimen | [...]
--- OUTSIDE RECORDS SUMMARY | ~2020-01-30 | XMS | Encounter Summary ---
Demographics + + + | Address | [address] | | | [place] [address] | + + + | Home Phone | | + + + | Preferred Language | Unknown | + + + | Marital Status | | + + + | Jain Affiliation | Unknown | + + + | Race | Unknown | + + + | Ethnic Group | Unknown | + + + Author + + + | Author | [facility] | | | and [place] | + + + | Organization | [facility] | | | and [place] | + + + | Address | Unknown | + + + | Phone | Unavailable | + + + Support + + + + + | Name | Relationship | Address | Phone | + + + + + | Liudmila Chang | ECON | [address] | | | | | [place] | | | | | [address] | | + + + + + Care Team Providers + +------+ + | Care Leadite Worker Name | Role | Phone | + +------+ + PCP | Unavailable | + +------+ + Encounter Details +--------+ + + + + | Date | Type | Department | Care Team | Description | +--------+ + + + + | 01/01/ | Hospital | [facility] | Onel Milligan MD | | | 2015 | Encounter | [facility] | [address] | | | | | CLINICAL LABORATORY | [place] [address] | | | | | [address] [facility] | [phone] | | | | | [place], [place] | | | | | | [address] | | | | | | [phone] | | | +--------+ + + + [...] | + +--------+ + + + | TISSUE REQUEST FOR | Routin | 01/02/2015 | | Results for this | | PATHOLOGY (NON-ORD) | e | 12:00 AM | | procedure are in the | | | | PDT | | results section. | + +--------+ + + + documented in this encounter Results Tissue Request For Pathology (01/02/2015 12:00 AM PDT) + + | Specimen | + + | | + + + + + | Narrative | Performed At | + + + | SPECIMEN(S): A SIGMOID COLON - BIOPSY SPECIMEN SOURCE: A. | EXTERNAL LAB | | SIGMOID COLON - BIOPSY CLINICAL HISTORY: 01/01/2015. [211.3] | | | MICROSCOPIC DESCRIPTION: Histologic sections of all submitted blocks | | | are examined by light microscopy. These findings, together with the | | | gross examination, support the pathologic diagnosis. 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 The specimen is entirely | | | submitted in cassette (A1). FM PERFORMING LABORATORY: Professional | | | interpretation and technical preparation was performed by [facility] | | | [facility], [address], | | | [place] [address] (Dog Control Officer: Terrell Mason M.D.; [place]#: | | | [id number]). Diagnostician: Terrell Mason MD Pathologist | | | Electronically Signed 01/03/2015 | | + + + + +---------+ + + | Performing | Address | City/State/Zipcode | Phone Number | | Organization | | | | + +---------+ + + | EXTERNAL LAB | | | | + +---------+ + + documented in this encounter Visit Diagnoses Not on filedocumented in this encounter
--- OUTSIDE RECORDS SUMMARY | ~2020-01-30 | XMS | Encounter Summary ---
Demographics + + + | Address | [address] | | | [place] [address] | + + + | Home Phone | | + + + | Preferred Language | Unknown | + + + | Marital Status | | + + + | Yazdanism Affiliation | Unknown | + + + | Race | Unknown | + + + | Ethnic Group | Unknown | + + + Author + + + | Author | [facility] | | | and [place] | + + + | Organization | [facility] | | | and [place] | + + + | Address | Unknown | + + + | Phone | Unavailable | + + + Support + + + + + | Name | Relationship | Address | Phone | + + + + + | Liudmila Chang | ECON | [address] | | | | | [place] | | | | | [address] | | + + + + + Care Team Providers + +------+ + | Care Debit Agent Name | Role | Phone | + [...] Unknown | | | | | [place] | [phone] | | | | | [address] | | | | | | [phone] | | | +--------+ + + + [...]
--- OUTSIDE RECORDS SUMMARY | ~2020-01-30 | XMS | Encounter Summary ---
Demographics + + + | Address | [address] | | | [place] [address] | + + + | Home Phone | | + + + | Preferred Language | Unknown | + + + | Marital Status | | + + + | Sabianism Affiliation | Unknown | + + + | Race | Unknown | + + + | Ethnic Group | Unknown | + + + Author + + + | Author | [facility] | | | and [place] | + + + | Organization | [facility] | | | and [place] | + + + | Address | Unknown | + + + | Phone | Unavailable | + + + Support + + + + + | Name | Relationship | Address | Phone | + + + + + | Liudmila Chang | ECON | [address] | | | | | [place] | | | | | [address] | | + + + + + Care Team Providers + +------+ + | Care Home Visit Field Care Manager Name | Role | Phone | [...] | | | | right kidney | 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 [address] | MD [address] | | | | | Post-void | [place] | [place] | | | | | dribbling | [address]VE | [place] | | | | | NEW/ [place] | [place], | [address] Phone: | | | | | R KIDNEY/ | [place] | [phone] | | | | | POST-VOID | [address] | Fax: | | | | | [place]/ | Phone: | [phone] | | | | | [place] | [phone] | | | | | | Procedures | Fax: | | | | | | NEW PATIENT | [phone] | | +--------+--------+ + + + + Encounter Details +--------+---------+ + + + | Date | Type | Department | Care Team | Description | +--------+---------+ + + + | 04/21/ | Office | [facility] | Mohan Prado | Right kidney mass | | 2017 | Visit | [address] | MD Alex [address] | (Primary Dx); | | | | [place] | [address] [place] | Post-void dribbling; | | | | [address] | [address] | Urge incontinence; | | | | [phone] | | Benign prostatic | | | [...] UA, POC Negative Negative, 100 mg/dL Specific [place], UA, POC 1.005 1.001 - 1.030 Blood, [...] [address] | [place] | [phone] | | [facility] | | [address] | | | - LABORATORY | | [...] 1.001 - 1.030 | | | | [place], | | | | | | UA, [...]
--- OUTSIDE RECORDS SUMMARY | ~2020-01-30 | XMS | Encounter Summary ---
Demographics + + + | Address | [address] | | | [place] [address] | + + + | Home Phone | | + + + | Preferred Language | Unknown | + + + | Marital Status | | + + + | Tenriism Affiliation | Unknown | + + + | Race | Unknown | + + + | Ethnic Group | Unknown | + + + Author + + + | Author | [facility] | | | and [place] | + + + | Organization | [facility] | | | and [place] | + + + | Address | Unknown | + + + | Phone | Unavailable | + + + Support + + + + + | Name | Relationship | Address | Phone | + + + + + | Liudmila Chang | ECON | [address] | | | | | [place] | | | | | [address] | | + + + + + Care Team Providers + +------+ + | Care Website Designer Name | Role | Phone | + [...] + + | 11/07/ | Telephone | [facility] | Christopher Kim MD | Imaging Only | | 2015 | | OTOLARYNGOLOGY [address] | [address] | | | | | [address] | [address] [place] | | | | | [place] | [place] [address] | | | | | [address] | [phone] | | | | | [phone] | | | +--------+ + + + [...] so he may go obtain that at [facility] now. elephone Encounter - Anna Benz - [...]
--- OUTSIDE RECORDS SUMMARY | ~2020-01-30 | XMS | Encounter Summary ---
Demographics + + + | Address | [address] | | | [place] [address] | + + + | Home Phone | | + + + | Preferred Language | Unknown | + + + | Marital Status | | + + + | Denominational Affiliation | Unknown | + + + | Race | Unknown | + + + | Ethnic Group | Unknown | + + + Author + + + | Author | [facility] | | | and [place] | + + + | Organization | [facility] | | | and [place] | + + + | Address | Unknown | + + + | Phone | Unavailable | + + + Support + + + + + | Name | Relationship | Address | Phone | + + + + + | Liudmila Chang | ECON | [address] | | | | | [place] | | | | | [address] | | + + + + + Care Team Providers + +------+ + | Care Steam Crane Operator Name | Role | Phone | + +------+ + | Kaylene Burch MD | PCP | | + +------+ + Encounter Details +--------+ + + + + | Date | Type | Department | Care Team | Description | +--------+ + + + + | 06/06/ | Orders Only | [facility] | Conversion | | | 2015 | | NEPHROLOGY [place] | Transaction, | | | | | [address] [facility] [address] | Provider Unknown | | | | | [address] [place] | | | | | | [address] | (Fax) | | | | | [phone] | | | +--------+ + + + [...]
--- OUTSIDE RECORDS SUMMARY | ~2020-01-30 | XMS | Encounter Summary ---
Demographics + + + | Address | [address] | | | [place] [address] | + + + | Home Phone | | + + + | Preferred Language | Unknown | + + + | Marital Status | | + + + | Mormonism Affiliation | Unknown | + + + | Race | Unknown | + + + | Ethnic Group | Unknown | + + + Author + + + | Author | [facility] | | | and [place] | + + + | Organization | [facility] | | | and [place] | + + + | Address | Unknown | + + + | Phone | Unavailable | + + + Support + + + + + | Name | Relationship | Address | Phone | + + + + + | Liudmila Chang | ECON | [address] | | | | | [place] | | | | | [address] | | + + + + + Care Team Providers + +------+ + | Care Sports Equipment Racker Name | Role | Phone | + +------+ + PCP | Unavailable | + +------+ + Encounter Details +--------+ + + + + | Date | Type | Department | Care Team | Description | +--------+ + + + + | 01/01/ | Hospital | [facility] | Onel Milligan MD | | | 2015 | Encounter | [facility] | [address] | | | | | CLINICAL LABORATORY | [place] [address] | | | | | [address] [facility] | [phone] | | | | | [place], [place] | | | | | | [address] | | | | | | [phone] | | | +--------+ + + + [...] interpretation and technical preparation was performed by [facility] | | | [facility], [address], | | | [place] [address] (Farebox Repairer: Terrell Mason M.D.; IA#: | | | [id number]). Diagnostician: Terrell Mason MD Pathologist | | [...]
--- OUTSIDE RECORDS SUMMARY | ~2020-01-30 | XMS | Encounter Summary ---
Demographics + + + | Address | [address] | | | [place] [address] | + + + | Home Phone | | + + + | Preferred Language | Unknown | + + + | Marital Status | | + + + | Gnosticism Affiliation | Unknown | + + + | Race | Unknown | + + + | Ethnic Group | Unknown | + + + Author + + + | Author | [facility] | | | and [place] | + + + | Organization | [facility] | | | and [place] | + + + | Address | Unknown | + + + | Phone | Unavailable | + + + Support + + + + + | Name | Relationship | Address | Phone | + + + + + | Liudmila Chang | ECON | [address] | | | | | [place] | | | | | [address] | | + + + + + Care Team Providers + +------+ + | Care Real Estate Agent Name | Role | Phone | + +------+ + PCP | Unavailable | + +------+ + Encounter Details +--------+ + + + + | Date | Type | Department | Care Team | Description | +--------+ + + + + | 08/01/ | Hospital | [facility] | Conversion | Headache(784.0) | | 2014 | Encounter | CONVERSION DEP [address] | Transaction, | | | | | [address] [facility] | Provider Unknown | | | | | [place] | [phone] | | | | | [address] | | | | | | [phone] | | | +--------+ + + + [...] + +--------+ + + + | MRI BRAIN WO | Routin | 07/13/2014 | | Results for this | | CONTRAST | e | 5:52 PM | | procedure are in the | | | | PST | | results section. | + +--------+ + + + documented in this encounter Results MRI Brain wo Contrast (07/13/2014 5:52 PM PST) + + | Specimen | [...] + | Diagnosis | + + | Headache(784.0) Headache | + + documented in this encounter"
--- OUTSIDE RECORDS SUMMARY | ~2020-01-30 | XMS | Encounter Summary ---
Demographics + + + | Address | [address] | | | [place] [address] | + + + | Home Phone [...] + | Author | [facility] | | | and [place]ana | + + + | Organization | [facility] | | | and [place] | + + + | Address | Unknown | + + + | Phone | Unavailable | + + + Support + + + + + | Name | Relationship | Address | Phone | + + + + + | Liudmila Chang | ECON | [address] | | | | | [place] | | | | | [address] | | + + + + + Care Team Providers + +------+ + | Care Supervisor Hairspring Fabrication Name | Role | Phone | + +------+ + | Kaylene Burch MD | PCP | | + +------+ + Encounter Details +--------+ + + + + | Date | Type | Department | Care Team | Description | +--------+ + + + + | 01/31/ | Orders Only | [facility] | Provider, | | | 2019 | | SYSTEM GENERIC OP | MD [address] | | | | | CONVERSION [address] | [place]. | | | | | [address] [place], [place] | [place] [address] | | | | | [address] | | | | | | [phone] | | | +--------+ + + + [...]
--- OUTSIDE RECORDS SUMMARY | ~2020-01-30 | XMS | Encounter Summary ---
Demographics + + + | Address | [address] | | | [place] [address] | + + + | Home Phone | | + + + | Preferred Language | Unknown | + + + | Marital Status | | + + + | Mandaeism Affiliation | Unknown | + + + | Race | Unknown | + + + | Ethnic Group | Unknown | + + + Author + + + | Author | [facility] | | | and [place] | + + + | Organization | [facility] | | | and [place] | + + + | Address | Unknown | + + + | Phone | Unavailable | + + + Support + + + + + | Name | Relationship | Address | Phone | + + + + + | Liudmila Chang | ECON | [address] | | | | | [place] | | | | | [address] | | + + + + + Care Team Providers + +------+ + | Care Briefcase Sewer Name | Role | Phone | + +------+ + | Kaylene Burch MD | PCP | | + +------+ + Encounter Details +--------+ + + + + | Date | Type | Department | Care Team | Description | +--------+ + + + + | 10/03/ | Orders Only | [facility] | Avery Keating MD | | | 2017 | | NEPHROLOGY [place] | [address] [place] | | | | | [address] [place] | [address] [place], [place] | | | | | [address] [place], [place] | [address] | | | | | [address] | | | | | | [phone] | | | +--------+ + + + [...] | EXTERNAL LAB: CBC | Routin | 10/03/2016 | | Results for this | | | e | 7:43 AM | | procedure are in the | | | | PDT | | results section. | + +--------+ + + + | URINALYSIS WITH | Routin | 10/03/2016 | | Results for this | | MICROSCOPIC IF | e | 7:43 AM | | procedure are in the | | INDICATED | | PDT | | results section. | + +--------+ + + + | VITAMIN D, | Routin | 10/03/2016 | | Results for this | | DEFICIENCY SCREEN | e | 7:43 AM | | procedure are in the | | (25-HYDROXY) | | PDT | | results section. | + +--------+ + + + | PROTEIN/CREATININE | Routin | 10/03/2016 | | Results for this | | RATIO, URINE | e | 7:43 AM | | procedure are in the | | | | PDT | | results section. | + +--------+ + + + | URIC ACID | Routin | 10/03/2016 | | Results for this | | | e | 7:43 AM | | procedure are in the | | | | PDT | | results section. | + +--------+ + + + | BASIC METABOLIC | Routin | 10/03/2016 | | Results for this | | PANEL | e | 7:43 AM | | procedure are in the | | | | PDT | | results section. | + +--------+ + + + documented in this encounter Results Protein/Creatinine Ratio, Urine (10/03/2016 7:43 AM PDT) + + + + + + | Component | Value | Ref Range | Performed | Pathologist | | | | | At | Signature | + + + + + + | Protein/Cre | 780.8 (A) | 0 - 150 | EXTERNAL [...] | | | + +---------+ + + Vitamin D, Deficiency Screen (25-Hydroxy) (10/03/2016 7:43 AM PDT) + +-------+ + + + | Component | Value | Ref Range | Performed | Pathologist | | | | | At | Signature | + +-------+ + + + | Vit D, | 53 | 30 - 100 | EXTERNAL | | | 25-Hydroxy | | | LAB | | + [...] + + Urinalysis with Microscopic if Indicated (10/03/2016 7:43 AM PDT) + + + + + [...] + + + | Spec Grav, | 1.010 | 1.005 - 1.030 | EXTERNAL | [...] + + + + | Total | 75 | | EXTERNAL | | | Protein | | | LAB | | + + + + + + | pH, Urine | 6 | 5 - 9 | EXTERNAL | [...] + + | Glucose, | Negative | | EXTERNAL | | [...] + +---------+ + + External Lab: LEE (10/03/2016 7:43 AM PDT) + + + + + + | Component | Value | Ref Range | Performed | Pathologist | | | | | At | Signature | + + + + + + | WBC | 9.5 | 4.5 - 11.0 10 | EXTERNAL | | | | | | LAB | | + + + + + + | Non- | 5.98 (A)Comment: 13.5 | 4.3 - 5.7 17.6 | EXTERNAL | | | Red Blood | | | LAB | | | Cells | | | | | | Counted | | | | | + + + + + + | Hemoglobin | 17.6 | 13.5 - 18.0 | EXTERNAL | | | | | g/dL | LAB | | + + + + + + | Hematocrit, | 54.6 (A) | 41 - 50 % | EXTERNAL | | | POC | | | LAB | | + + + + + + | MCV | 91.7 | 81 - 99 fL | EXTERNAL | | | | | | LAB | | + + + + + + | MCH | 29 | 27 - 33 pg | EXTERNAL | | | | | | LAB | | + + + + + + | MCHC | 32 | 30 - 36 g/dL | EXTERNAL | | | | | | LAB | | + + + + + + | Platelet | 190 | 140 - 440 K/ L | EXTERNAL | | | Count | | | LAB | | | Plasma | | | | | + + + + + + | RDW-CV | 15.7 (A) | 10.5 - 15.0 % | [...] | + +---------+ + + Uric Acid (10/03/2016 7:43 AM PDT) + +-------+ + + + | Component | Value | Ref Range | Performed | Pathologist | | | | | At | Signature | + +-------+ + + + | Uric Acid | 6.1 | 4.4 - 7.6 | EXTERNAL | [...] + +---------+ + + Basic Metabolic Panel (10/03/2016 7:43 AM PDT) + +---------+ + + + | Component | Value | Ref Range | Performed | Pathologist | | | | | At | Signature | + +---------+ + + + | Glucose, | 200 (A) | 70 - 100 mg/dL | EXTERNAL | | | Fasting | | | LAB | | + +---------+ + + + | BUN | 9 | 6 - 23 mg/dL | EXTERNAL | | | | | | LAB | | + +---------+ + + + | Creatinine | 0.73 | 0.70 - 1.25 | EXTERNAL | | | | | mg/dL | LAB | | + +---------+ + + + | BUN/Creatin | 12.3 | 6.0 - 28.6 | EXTERNAL | [...] +---------+ + + + | CO2 | 31 | 19 - 31 mmol/L | EXTERNAL | | | | | | LAB | | + +---------+ + + + | Anion Gap | 12.8 | 7 - 21 mmol/L | EXTERNAL | | | | | | LAB | | + +---------+ + + + | Estimated | 109 | mg/dL | EXTERNAL | | | [...]
--- OUTSIDE RECORDS SUMMARY | ~2020-01-30 | XMS | Encounter Summary ---
Demographics + + + | Address | [address] | | | [place] [address] | + + + | Home Phone | | + + + | Preferred Language | Unknown | + + + | Marital Status | | + + + | Scientology Affiliation | Unknown | + + + | Race | Unknown | + + + | Ethnic Group | Unknown | + + + Author + + + | Author | [facility] | | | and [place] | + + + | Organization | [facility] | | | and [place] | + + + | Address | Unknown | + + + | Phone | Unavailable | + + + Support + + + + + | Name | Relationship | Address | Phone | + + + + + | Liudmila Chang | ECON | [address] | | | | | [place] | | | | | [address] | | + + + + + Care Team Providers + +------+ + | Care Channel Supervisor Name | Role | Phone | + +------+ + | Kaylene Burch MD | PCP | | + +------+ + Encounter Details +--------+ + + + + | Date | Type | Department | Care Team | Description | +--------+ + + + + | 08/05/ | Orders Only | [facility] | Conversion | | | 2016 | | NEPHROLOGY [place] | Transaction, | | | | | [address] [facility] [address] | Provider Unknown | | | | | [address] [place] | | | | | | [address] | (Fax) | | | | | [phone] | | | +--------+ + + + [...] - 1.030 | EXTERNAL | | | [facility], | | | LAB | | | [...]
--- OUTSIDE RECORDS SUMMARY | ~2020-01-30 | XMS | Encounter Summary ---
Demographics + + + | Address | [address] | | | [place] [address] | + + + | Home Phone [...] + | Author | [facility] | | | and [place] | + + + | Organization | [facility] | | | and [place] | + + + | Address | Unknown | + + + | Phone | Unavailable | + + + Support + + + + + | Name | Relationship | Address | Phone | + + + + + | Liudmila Chang | ECON | [address] | | | | | [place] | | | | | [address] | | + + + + + Care Team Providers + +------+ + | Care Sales And Service Officer Name | Role | Phone | + [...] + | 05/19/ | Office | [facility] | Mohan Prado | OAB (overactive | | 2017 | Visit | [address] | MD Alex [address] | bladder) (Primary | | | | [place] | [address] [place] | Dx); Urge | | | | [address] | [address] | incontinence of | | | | [phone] | | urine; | | | | [...] extremities. Greater than 15 minutes was spent [id number]-[id number] with the patient and greater than 50% [...]
--- OUTSIDE RECORDS SUMMARY | ~2020-01-30 | XMS | Encounter Summary ---
Demographics + + + | Address | [address] | | | [place] [address] | + + + | Home Phone | | + + + | Preferred Language | Unknown | + + + | Marital Status | | + + + | Rastafari Affiliation | Unknown | + + + | Race | Unknown | + + + | Ethnic Group | Unknown | + + + Author + + + | Author | [facility] | | | and [place] | + + + | Organization | [facility] | | | and [place] | + + + | Address | Unknown | + + + | Phone | Unavailable | + + + Support + + + + + | Name | Relationship | Address | Phone | + + + + + | Liudmila Chang | ECON | [address] | | | | | [place] | | | | | [address] | | + + + + + Care Team Providers + +------+ + | Care Box Toe Stitcher Name | Role | Phone | + +------+ + | Kaylene Burch MD | PCP | | + +------+ + Encounter Details +--------+ + + + + | Date | Type | Department | Care Team | Description | +--------+ + + + + | 09/02/ | Orders Only | [facility] | Conversion | | | 2016 | | NEPHROLOGY [place] | Transaction, | | | | | [address] [facility] [address] | Provider Unknown | | | | | [address] [place] | | | | | | [address] | (Fax) | | | | | [phone] | | | +--------+ + + + [...]
--- OUTSIDE RECORDS SUMMARY | ~2020-01-30 | XMS | Encounter Summary ---
Demographics + + + | Address | [address] | | | [place] [address] | + + + | Home Phone | | + + + | Preferred Language | Unknown | + + + | Marital Status | | + + + | Gnosticism Affiliation | Unknown | + + + | Race | Unknown | + + + | Ethnic Group | Unknown | + + + Author + + + | Author | [facility] | | | and [place] | + + + | Organization | [facility] | | | and [place] | + + + | Address | Unknown | + + + | Phone | Unavailable | + + + Support + + + + + | Name | Relationship | Address | Phone | + + + + + | Liudmila Chang | ECON | [address] | | | | | [place], [place] | | | | | [address] | | + + + + + Care Team Providers + +------+ + | Care Source Inspector Name | Role | Phone | [...] | | | | | | | [address] | | +--------+--------+ + + + + Encounter Details +--------+ + + + + | Date | Type | Department | Care Team | Description | +--------+ + + + + | 04/22/ | Imaging | [facility] | Provider, | | | 2016 | Exam | [facility] | MD [address] | | | | | IMAGING [address] | Yenni [address]UNC[place] | | | | | [address] [place] | [place] [address] | | | | | [place] [address] | | | | | | [phone] | | | +--------+ + + + [...] for comparison only - no result from [place]. | | + + + + +---------+ + + | Performing | Address | City/State/Zipcode | Phone Number | | Organization | | | | + +---------+ + + | [facility] | | | | + +---------+ + + documented in this encounter Visit Diagnoses Not on filedocumented in this encounter"
--- OUTSIDE RECORDS SUMMARY | ~2020-01-30 | XMS | Encounter Summary ---
Demographics + + + | Address | [address] | | | [place] [address] | + + + | Home Phone | | + + + | Preferred Language | Unknown | + + + | Marital Status | | + + + | Methodist Affiliation | Unknown | + + + | Race | Unknown | + + + | Ethnic Group | Unknown | + + + Author + + + | Author | [facility] | | | and [place] | + + + | Organization | [facility] | | | and [place] | + + + | Address | Unknown | + + + | Phone | Unavailable | + + + Support + + + + + | Name | Relationship | Address | Phone | + + + + + | Liudmila Chang | ECON | [address] | | | | | [place] | | | | | [address] | | + + + + + Care Team Providers + +------+ + | Care Hand Cigar Maker Name | Role | Phone | [...] | | | [place] | [place] [address] | | | | | [address] | [phone] | | | | | [phone] | | | +--------+ + + + [...] that imaging orders have been sent to [facility]. elephone Encounter - Cindi Thorpe, Sami Ass isdario - 06/13/2015 9:09 AM PSTOrders have been sent to [facility] Need to call and let the patient know that the orders are there. elephone Encounter - Anna Benz - 06/12/2015 2:18 PM PSTPatients called in to let the nurse know they would like imaging to be sent at [facility]. Blood work has been done at [facility] in [place]. documented in this encounter Plan of Treatment Not on filedocumented as of this encounter Visit Diagnoses Not on filedocumented in this encounter"
--- OUTSIDE RECORDS SUMMARY | ~2020-01-30 | XMS | Encounter Summary ---
Demographics + + + | Address | [address] | | | [place] [address] | + + + | Home Phone | | + + + | Preferred Language | Unknown | + + + | Marital Status | | + + + | Presybeterian Affiliation | Unknown | + + + | Race | Unknown | + + + | Ethnic Group | Unknown | + + + Author + + + | Author | [facility] | | | and [place] | + + + | Organization | [facility] | | | and [place] | + + + | Address | Unknown | + + + | Phone | Unavailable | + + + Support + + + + + | Name | Relationship | Address | Phone | + + + + + | Liudmila Chang | ECON | [address] | | | | | [place], [place] | | | | | [address] | | + + + + + Care Team Providers + +------+ + | Care Hammerer Tab Name | Role | Phone | + [...] | | | [address] [place] | [place] [address] | | | | | [place] [address] | | | | | | [phone] | | | +--------+ + + + [...] for comparison only - no result from [place]. | | + + + + +---------+ + + | Performing | Address | City/State/Zipcode | Phone Number | | Organization | | | | + +---------+ + + | [facility] | | | | + +---------+ + + documented in this encounter Visit Diagnoses Not on filedocumented in this encounter"
--- OUTSIDE RECORDS SUMMARY | ~2020-01-30 | XMS | Encounter Summary ---
Demographics + + + | Address | [address] | | | [place] [address] | + + + | Home Phone | | + + + | Preferred Language | Unknown | + + + | Marital Status | | + + + | Rastafarian Affiliation | Unknown | + + + | Race | Unknown | + + + | Ethnic Group | Unknown | + + + Author + + + | Author | [facility] | | | and [place] | + + + | Organization | [facility] | | | and [place] | + + + | Address | Unknown | + + + | Phone | Unavailable | + + + Support + + + + + | Name | Relationship | Address | Phone | + + + + + | Liudmila Chang | ECON | [address] | | | | | [place] | | | | | [address] | | + + + + + Care Team Providers + +------+ + | Care Field Tax Auditor Name | Role | Phone | + +------+ + PCP | Unavailable | + +------+ + Encounter Details +--------+ + + + + | Date | Type | Department | Care Team | Description | +--------+ + + + + | 08/01/ | Hospital | [facility] | Conversion | Neck pain | | 2015 | Encounter | CONVERSION DEP [address] | Transaction, | | | | | [address] | Provider Unknown | | | | | [facility] | [phone] | | | | | [address] | | | | | | [phone] | | | +--------+ + + + [...]
--- OUTSIDE RECORDS SUMMARY | ~2020-01-30 | XMS | Clinical Summary ---
Demographics + + + | Address | [address] | | | [place] [address] | + + + | Home Phone | | + + + | Preferred Language | Unknown | + + + | Marital Status | | + + + | Denominational Affiliation | Unknown | + + + | Race | Unknown | + + + | Ethnic Group | Unknown | + + + Author + + + | Author | [facility] | | | and [place] | + + + | Organization | [facility] | | | and [place] | + + + | Address | Unknown | + + + | Phone | Unavailable | + + + Support + + + + + | Name | Relationship | Address | Phone | + + + + + | Liudmila Chang | ECON | [address] | | | | | [place] | | | | | [address] | | + + + + + Care Team Providers + +------+ + | Care Category Planner Name | Role | Phone | + +------+ + | Kaylene Burch MD | PCP | | + +------+ + Allergies No Known Allergies Medications + + + +---------+------+------+-------+ | Medication | Sig | Dispensed | Refills | Star | End | Statu | | | | | | t | Date | s | | | | | | Date | | | + + + +---------+------+------+-------+ | lisinopril | Take 20 mg by mouth | | 0 | | | Activ | | (PRINIVIL, ZESTRIL) | Daily. | | | | | e | | 20 mg tablet | | | | | | | + + + +---------+------+------+-------+ | insulin aspart | Inject 30 Units | | 0 | | | Activ | | (NOVOLOG FLEXPEN) | under the skin 2 | | | | | e | | 100 units/mL | times daily. | | | | | | | injection pen | | | | | | | + + + +---------+------+------+-------+ | simvastatin | Take 20 mg by mouth | | 0 | | | Activ | | (ZOCOR) 40 mg tablet | nightly. | | | | | e | + + + +---------+------+------+-------+ | carbidopa-levodopa | Take 1 tablet by | | 0 | | | Activ | | (SINEMET) 10-100 mg | mouth 3 times daily. | | | | | e | | per tablet | | | | | | | + + + +---------+------+------+-------+ | metFORMIN | Take 500 mg by mouth | | 0 | | | Activ | | (GLUCOPHAGE) 1000 MG | Daily. | | | | | e | | tablet | | | | | | | + + + +---------+------+------+-------+ | gabapentin | Take 300 mg by mouth | | 0 | | | Activ | | (NEURONTIN) 300 mg | 3 times daily. | | | | | e | | capsule | | | | | | | + + + +---------+------+------+-------+ | aspirin 81 mg EC | Take 81 mg by mouth | | 0 | | | Activ | | tablet | Daily. | | | | | e | + + + +---------+------+------+-------+ | spironolactone | Take 1 tablet by | | 0 | 09/2 | | Activ | | (ALDACTONE) 25 mg | mouth. | | | 1/20 | | e | | tablet | | | | 17 | | | + + + +---------+------+------+-------+ | insulin glargine | Inject 40 Units | | 0 | 10/0 | | Activ | | (LANTUS SOLOSTAR) | under the skin 2 | | | 5/20 | | e | | 100 units/mL | times daily. | | | 17 | | | | injection (pen) | | | | | | | + + + +---------+------+------+-------+ | ergocalciferol | TAKE 1 CAPSULE BY | | 0 | 10/0 | | Activ | | (VITAMIN D-2) 50,000 | MOUTH TWICE A WEEK | | | 6/20 | | e | | units capsule | | | | 17 | | | + + + +---------+------+------+-------+ | Glucose Blood | 1 each. | | 0 | | | Activ | | (BLOOD GLUCOSE TEST | | | | | | e | | STRIPS) STRP | | | | | | | + + + +---------+------+------+-------+ | nystatin | Apply to rash tid as | 15 g | 1 | 10/3 | | Activ | | (MYCOSTATIN) cream | needed | | | 1/20 | | e | | | | | | 17 | | | + + + +---------+------+------+-------+ | oxybutynin | Take 1 tablet by | 30 | 3 | 10/3 | | Activ | | (DITROPAN-XL) 10 MG | mouth Daily. | tablet | | 1/20 | | e | | 24 hr tablet | | | | 17 | | | + + + +---------+------+------+-------+ | spironolactone | Take 1 tablet by | | 0 | 02/1 | | Activ | | (ALDACTONE) 25 mg | mouth Daily. | | | 7/20 | | e | | tablet | | | | 17 | | | + + + +---------+------+------+-------+ Active Problems + + + | Problem | Noted Date | + + + | Ulnar neuropathy at elbow of left upper extremity | 10/20/2017 | + + + | Chronic obstructive pulmonary disease | 04/21/2017 | + + + | Diabetic nephropathy associated with type 2 diabetes mellitus | 04/21/2017 | + + + | Left kidney mass | 04/21/2017 | + + + | Parkinson's disease | 04/21/2017 | + + + | Post-void dribbling | 03/02/2017 | + + + | Renal mass, right | 03/02/2017 | + + + | Essential hypertension, benign | 08/08/2016 | + + + | Dyslipidemia | 08/08/2016 | + + + | Proteinuria | 08/08/2016 | + + + | Multiple lung nodules | 12/19/2015 | + + + | Smoker | 12/19/2015 | + + + Immunizations + + + + | Name | Administration Dates | Next Due | + + + + | HEP B, 3 DOSE | 04/26/2014, 10/28/2013 | | | (ADULT) | | | + + + + | INFLUENZA QUADR | 03/26/2017 | | | W/PRES | | | | (PED/ADOL/ADULT) | | | | MULTIDOSE | | | + + + + | INFLUENZA, | 04/18/2016, 06/19/2015, 04/21/2014 | | | UNSPECIFIED | | | | FORMULATION | | | + + + + | PNEUMOCOCCAL | 06/25/2012 | | | POLYSACCHARIDE | | | | 23-VALENT (PPSV23) | | | + + + + | TDAP, (ADOL/ADULT) | 06/25/2012 | | + + + + Family History + + +------+ + | Medical History | Relation | Name | Comments | + + +------+ + | Stroke | Father | | | + + +------+ + | Stroke | Father | | | + + +------+ + | Diabetes | Mother | | | + + +------+ + | Heart attack | Mother | | | + + +------+ + | Stroke | Mother | | | + + +------+ + | Diabetes, NIDDM | Mother | | | + + +------+ + + +------+ + + | Relation | Name | Status | Comments | + +------+ + + | Father | | | | + +------+ + + | Father | | | | | | | (Age | | | | | 75) | | + +------+ + + | Father | | | | + +------+ + + | Mother | | | | + +------+ + + | Mother | | | | | | | (Age | | | | | 75) | | + +------+ + + | Mother | | | | + +------+ + + Social History + + + [...] on file | | + + + Last Filed Vital Signs + + + + + | Vital Sign | Reading | Time Taken | Comments | + + + + + | Blood Pressure | 128/63 | 10/16/2017 4:14 PM | | | | | PDT | | + + + + + | Pulse | 76 | 10/16/2017 4:14 PM | | | | | PDT | | + + + + + | Temperature | 35.7 C (96.3 F) | 03/02/2017 3:09 PM | | | | | PDT [...] + + + + | Weight | 113.9 kg (251 lb) | 10/16/2017 4:14 PM | | | | | PDT | | + + + + + | Height | 180.3 cm (5' 11") | 10/16/2017 4:14 PM | | | | | PDT | | + + + + + | Body Mass Index | 35.01 | 10/16/2017 4:14 PM | | | | | PDT | | + + + + + Plan of Treatment + + + + + | Health Maintenance | Due Date | Last | Comments | | | | Done | | + + + + + | Vaccine: Zoster (1 | | | | | of 2) | 5 | | | + + + + + | Vaccine: | | 06/25/19 | | | Pneumococcal 65+ (1 | 0 | 13 | | | of 1 - PPSV23) | | | | + + + + + | Vaccine: Influenza | | 03/26/20 | | | (#1) | 0 | 17, | | | | | 04/18/20 | | | | | 16, | | | | | 06/19/20 | | | | | 15, | | | | | Addition | | | | | al | | | | | history | | | | | exists | | + + + + + | Vaccine: | | 06/25/19 | | | Dtap/Tdap/Td (2 - | 3 | 13 | | | Td) | | | | + + + + + Results Not on filefrom Last 3 Months Insurance + +--------+ +--------+ +---------+--------+ | Payer | Benefi | Subscriber | Effect | Phone | Address | Type | | | t Plan | ID | paul | | | | | | / | | Dates | | | | | | Group | | | | | | + +--------+ +--------+ +---------+--------+ | [employer] [place] | [id number] | | | | Indemn | | | COMMUN | | 018-Pr | | | ity | | | ITY | | esent | | | | | | CARE | | | | | | + +--------+ +--------+ +---------+--------+ | MEDICARE | MEDICA | [id number] | 02/21/20 | [phone] | | Medica | | | RE | | 17-Pre | 5 | | re | | | PART A | | sent | | | | | | AND B | | | | | | + +--------+ +--------+ +---------+--------+ | [employer] | [employer] | [id number] | 04/19/ | | | Indemn | | | DOLAN | | 2016-P | | | ity | | | LIFE | | resent | | | | | | MDCR | | | | | | | | SUPPL | | | | | | + +--------+ +--------+ +---------+--------+ + +--------+ +--------+ + + | Guarantor Name | Accoun | Relation to | Date | Phone | Billing Address | | | t Type | Patient | of | | | | | | | | | | + +--------+ +--------+ + + | Yimi Chang | Person | Self [birth year] | | [address] | | | al/Fam | | 1956 | [phone] | [place] [address] | | | solo | | | 0 (Home) | | + +--------+ +--------+ + + Advance Directives + + + + + | Type | Date Recorded | Patient | Explanation | | | | Caramel Maker | | + + + + + | Power of | | | | | Merchandise Support Associate | | | | + + + + + | Advance | | | | | Directive | | | | + + + + +
--- OUTSIDE RECORDS SUMMARY | ~2020-01-30 | XMS | Encounter Summary ---
Demographics + + + | Address | [address] | | | [place] [address] | + + + | Home Phone | | + + + | Preferred Language | Unknown | + + + | Marital Status | | + + + | Christian Affiliation | Unknown | + + + | Race | Unknown | + + + | Ethnic Group | Unknown | + + + Author + + + | Author | [facility] | | | and [place] | + + + | Organization | [facility] | | | and [place] | + + + | Address | Unknown | + + + | Phone | Unavailable | + + + Support + + + + + | Name | Relationship | Address | Phone | + + + + + | Liudmila Chang | ECON | [address] | | | | | [place] | | | | | [address] | | + + + + + Care Team Providers + +------+ + | Care Optometry Assistant Name | Role | Phone | [...] | | | | [place] | [id number] | | | | | [id number] | | | | | | [phone] | | | +--------+ + + + [...] | | WO CONTRAST | e | 1:04 PM | | procedure are in the | | | | PST | | results section. | + +--------+ + + + documented in this encounter Results MRI Cervical Spine wo Contrast (07/13/2014 1:04 PM PST) + + | Specimen | [...]
--- OUTSIDE RECORDS SUMMARY | ~2020-01-30 | XMS | Clinical Summary ---
Demographics + + + | Address | [address] | | | [place] [address] | + + + | Home Phone [...] + | Author | [facility] | | | and [place] | + + + | Organization | [facility] | | | and [place] | + + + | Address | Unknown | + + + | Phone | Unavailable | + + + Support + + + + + | Name | Relationship | Address | Phone | + + + + + | Liudmila Chang | ECON | [address] | | | | | [place] | | | | | [address] | | + + + + + Care Team Providers + +------+ + | Care Blueprint Reader Name | Role | Phone | + [...] +---------+--------+ | [employer] [place] | [id number] | | | | Indemn | | | COMMUN | | 018-Pr | | | ity | | | ITY | | esent | | | | | | CARE | | | | | | + +--------+ +--------+ +---------+--------+ | MEDICARE | MEDICA | [id number] | 02/21/20 | [phone] | | Medica | | | RE | | 17-Pre | 5 | | re | | | PART A | | sent | | | | | | AND B | | | | | | + +--------+ +--------+ +---------+--------+ | [employer] | [employer] | [id number] | 04/19/ | | | Indemn | [...] Person | Self | [birth year] | | [address] | | | al/Fam | | 1956 | [phone] | [place] [address] | | | solo | | | 0 (Home) | | + +--------+ +--------+ + + Advance Directives + + + + + | Type | Date Recorded | Patient | Explanation | | | | Accounts Manager | | + + + + + | Power of | | | | | Career Technical Education Teacher | | | | + + + + + | Advance | | | | | Directive | | | | + + + + +
--- OUTSIDE RECORDS SUMMARY | ~2020-01-30 | XMS | Encounter Summary ---
Demographics + + + | Address | [address] | | | [place] [address] | + + + | Home Phone | | + + + | Preferred Language | Unknown | + + + | Marital Status | | + + + | Episcopal Affiliation | Unknown | + + + | Race | Unknown | + + + | Ethnic Group | Unknown | + + + Author + + + | Author | [facility] | | | and [place] | + + + | Organization | [facility] | | | and [place] | + + + | Address | Unknown | + + + | Phone | Unavailable | + + + Support + + + + + | Name | Relationship | Address | Phone | + + + + + | Liudmila Chang | ECON | [address] | | | | | [place] | | | | | [address] | | + + + + + Care Team Providers + +------+ + | Care Verify Rep Name | Role | Phone | + +------+ + PCP | Unavailable | + +------+ + Encounter Details +--------+ + + + + | Date | Type | Department | Care Team | Description | +--------+ + + + + | 08/01/ | Hospital | [facility] GENER[facility] IP | Conversion | Headache(784.0) | | 2014 | Encounter | CONVERSION DEP 888 | Transaction, | | | | | [address] | Provider Unknown | | | | | [place] | [phone] | | | | | [address] | | | | | | [phone] | | | +--------+ + + + [...]
--- OUTSIDE RECORDS SUMMARY | ~2020-01-30 | XMS | Encounter Summary ---
Demographics + + + | Address | [address] | | | [place] [address] | + + + | Home Phone | | + + + | Preferred Language | Unknown | + + + | Marital Status | | + + + | Jew Affiliation | Unknown | + + + | Race | Unknown | + + + | Ethnic Group | Unknown | + + + Author + + + | Author | [facility] | | | and [place] | + + + | Organization | [facility] | | | and [place] | + + + | Address | Unknown | + + + | Phone | Unavailable | + + + Support + + + + + | Name | Relationship | Address | Phone | + + + + + | Liudmila Chang | ECON | [address] | | | | | [place] | | | | | [address] | | + + + + + Care Team Providers + +------+ + | Care Ampoule Inspector Name | Role | Phone | [...] Unknown | | | | | [place] | [phone] | | | | | [address] | | | | | | [phone] | | | +--------+ + + + [...]
--- OUTSIDE RECORDS SUMMARY | ~2020-01-30 | XMS | Encounter Summary ---
Demographics + + + | Address | [address] | | | [place] [address] | + + + | Home Phone | | + + + | Preferred Language | Unknown | + + + | Marital Status | | + + + | Sikhism Affiliation | Unknown | + + + | Race | Unknown | + + + | Ethnic Group | Unknown | + + + Author + + + | Author | [facility] | | | and [place] | + + + | Organization | [facility] | | | and [place] | + + + | Address | Unknown | + + + | Phone | Unavailable | + + + Support + + + + + | Name | Relationship | Address | Phone | + + + + + | Liudmila Chang | ECON | [address] | | | | | [place] | | | | | [address] | | + + + + + Care Team Providers + +------+ + | Care Leather Etcher Name | Role | Phone | + [...] + + | 06/27/ | Telephone | [facility] | Christopher Kim MD | Other | | 2016 | | OTOLARYNGOLOGY [address] | [address] | | | | | [address] | [address] [place] | | | | | [place], [place] | [place] [address] | | | | | [address] | [phone] | | | | | [phone] | | | +--------+ + + + [...] Miscellaneous Notes Telephone Encounter - Cindi Thorpe [employer] President - 08/15/2015 8:30 AM PSTLabs hav e been reviewed 8 :31 AM PSTTelephone Encounter - Cindi Thorpe [employer] President - 07/03/2015 10:37 AM PS TJust received labs and they have been placed on desnicole so he can review them. Electr onically signed by Cindi Thorpe [employer] President at 07/03/2015 10:38 AM PSTTelephone En counter [...]
--- OUTSIDE RECORDS SUMMARY | ~2020-01-30 | XMS | Encounter Summary ---
Demographics + + + | Address | [address] | | | [place] [address] | + + + | Home Phone | | + + + | Preferred Language | Unknown | + + + | Marital Status | | + + + | Anabaptist Affiliation | Unknown | + + + | Race | Unknown | + + + | Ethnic Group | Unknown | + + + Author + + + | Author | [facility] | | | and [place] | + + + | Organization | [facility] | | | and [place] | + + + | Address | Unknown | + + + | Phone | Unavailable | + + + Support + + + + + | Name | Relationship | Address | Phone | + + + + + | Liudmila Chang | ECON | [address] | | | | | [place] | | | | | [address] | | + + + + + Care Team Providers + +------+ + | Care Supervisor Roller Printing Name | Role | Phone | + [...] Unknown | | | | | [place] | [phone] | | | | | [address] | | | | | | [phone] | | | +--------+ + + + [...]
--- OUTSIDE RECORDS SUMMARY | ~2020-01-30 | XMS | Encounter Summary ---
Demographics + + + | Address | [address] | | | [place] [address] | + + + | Home Phone | | + + + | Preferred Language | Unknown | + + + | Marital Status | | + + + | Restorationism Affiliation | Unknown | + + + | Race | Unknown | + + + | Ethnic Group | Unknown | + + + Author + + + | Author | [facility] | | | and [place] | + + + | Organization | [facility] | | | and [place] | + + + | Address | Unknown | + + + | Phone | Unavailable | + + + Support + + + + + | Name | Relationship | Address | Phone | + + + + + | Liudmila Chang | ECON | [address] | | | | | [place] | | | | | [address] | | + + + + + Care Team Providers + +------+ + | Care Senior Packaging Engineer Name | Role | Phone | + +------+ + | Kaylene Burch MD | PCP | | + +------+ + Encounter Details +--------+ + + + + | Date | Type | Department | Care Team | Description | +--------+ + + + + | 09/09/ | Orders Only | [facility] | Conversion | | | 2016 | | NEPRHOLOGY [place] | Transaction, | | | | | [address] | Provider Unknown | | | | | [address] [place], [place] | [phone] | | | | | [address] | | | | | | [phone] | | | +--------+ + + + [...]
--- OUTSIDE RECORDS SUMMARY | ~2020-01-30 | XMS | Encounter Summary ---
Demographics + + + | Address | [address] | | | [place] [address] | + + + | Home Phone [...] | Author | [facility] | | | and [place] | + + + | Organization | [facility] | | | and [place] | + + + | Address | Unknown | + + + | Phone | Unavailable | + + + Support + + + + + | Name | Relationship | Address | Phone | + + + + + | Liudmila Chang | ECON | [address] | | | | | [place] | | | | | [phone] | | + + + + + Care Team Providers + +------+ + | Care Tie Maker Name | Role | Phone | + +------+ + | Kaylene Burch MD | PCP | | + +------+ + Encounter Details +--------+ + + + + | Date | Type | Department | Care Team | Description | +--------+ + + + + | 02/24/ | Orders Only | [facility] | Avery Keating MD | | | 2017 | | NEPHROLOGY [place] | [address] [place] | | | | | [address] [place] | [address] [place], [place] | | | | | [address] [place], [place] | [address] | | | | | [phone] | | | | | | [phone] | | | +--------+ + + + [...]
--- OUTSIDE RECORDS SUMMARY | ~2020-01-30 | XMS | Encounter Summary ---
Demographics + + + | Address | [address] | | | [place] [address] | + + + | Home Phone | | + + + | Preferred Language | Unknown | + + + | Marital Status | | + + + | Alevism Affiliation | Unknown | + + + | Race | Unknown | + + + | Ethnic Group | Unknown | + + + Author + + + | Author | [facility] | | | and [place] | + + + | Organization | [facility] | | | and [place] | + + + | Address | Unknown | + + + | Phone | Unavailable | + + + Support + + + + + | Name | Relationship | Address | Phone | + + + + + | Liudmila Chang | ECON | [address] | | | | | [place] | | | | | [phone] | | + + + + + Care Team Providers + +------+ + | Care Registration Representative Name | Role | Phone | + +------+ + | Kaylene Burch MD | PCP | | + +------+ + Encounter Details +--------+ + + + + | Date | Type | Department | Care Team | Description | +--------+ + + + + | 10/03/ | Orders Only | [facility] | Avery Keating MD | | | 2017 | | NEPHROLOGY [place] | [address] [place] | | | | | [address] [place] | [address] [place], [place] | | | | | [address] [place], [place] | [address] | | | | | [address] | | | | | | [phone] | | | +--------+ + + + [...]
--- OUTSIDE RECORDS SUMMARY | ~2020-01-30 | XMS | Encounter Summary ---
Demographics + + + | Address | [address] | | | [place] [address] | + + + | Home Phone | | + + + | Preferred Language | Unknown | + + + | Marital Status | | + + + | Hinduism Affiliation | Unknown | + + + | Race | Unknown | + + + | Ethnic Group | Unknown | + + + Author + + + | Author | [facility] | | | and [place] | + + + | Organization | [facility] | | | and [place] | + + + | Address | Unknown | + + + | Phone | Unavailable | + + + Support + + + + + | Name | Relationship | Address | Phone | + + + + + | Liudmila Chang | ECON | [address] | | | | | [place] | | | | | [phone] | | + + + + + Care Team Providers + +------+ + | Care Summons Server Name | Role | Phone | + [...] | | | | [place] | [id number] | | | | | [phone] | | | | | | [phone] | | | +--------+ + + + [...]
--- OUTSIDE RECORDS SUMMARY | ~2020-01-30 | XMS | Encounter Summary ---
Demographics + + + | Address | [address] | | | [place] [address] | + + + | Home Phone [...] + | Author | [facility] | | | and [place] | + + + | Organization | [facility] | | | and [place] | + + + | Address | Unknown | + + + | Phone | Unavailable | + + + Support + + + + + | Name | Relationship | Address | Phone | + + + + + | Liudmila Chang | ECON | [address] | | | | | [place] | | | | | [phone] | | + + + + + Care Team Providers + +------+ + | Care Lcpc Name | Role | Phone | + [...] | | | | [place] | [phone] | | | | | [address] | | | | | | [phone] | | | +--------+ + + + [...]
[~2020-01-30 18:02] MED LIST changes: -GABAPENTIN300 MG PO; +GABAPENTIN600 MG PO; -LANTUS SOL100 UNIT/1 SUB-Q; +LANTUS100 UNITS/ SUB-Q; +NORCO 5-325 TA1 EACH PO; -VITAMIN D250000 UNIT PO; +VITAMIN D325 MC2 PO
--- NOTE | 2020-01-30 23:00 | NUR ---
PT ADMITTED TO ROOM 127 FOR SEPSIS/UNKNOWN ORIGIN. PT IS AWAKE AND ALERT AND ORIENTED. ARRIVES ON 3L/NC/O2 WHICH PT STATES IS WHAT HE WEARS AT HOME "WHEN IM INSIDE, WHEN IM OUTSIDE I DONT WEAR NOTHING". RESP RATE 22-28, INCREASES WITH EXERTION. UP TO VOID THEN GOT HIMSELF INTO BED. ANSWERS QUESTIONS APPROPRIATELY. SKIN HAS NUMEROUS ABRASIONS/SKIN TEARS, SOME WITH DRESSINGS APPLIED BY ED. PT DENIES PAIN OR FEELING SOB AT THIS TIME. PT HAS REDDNED LEFT LE, WITH QUARTER SIZED SCAB ON FRONT OF LOPEZ. CALL LIGHT INHAND, PT INSTRUCTED TO CALL WHEN NEEDING TO GET UP. INFORMED OF ORDER FOR CATHETER, PT REFUSES. WILL MONITOR URINE OUTPUT CLOSELY. BED ALARM PLACED.
--- NOTE | 2020-01-31 02:02 | NUR ---
PT RESTING WITH EYES CLOSED. TAKING VERY DEEP RESPIRATIONS, RATE 22-24, SPO2 96% ON ROOM AIR. DOES NOT WAKE FOR RN TO ENTER, CHART OR WORK WITH IV PUMP.
--- NOTE | 2020-01-31 05:15 | NUR ---
PT UP TO VOID, VERY SOB WITH EXERTION, INS AND EXW WHEEZES. RECOVERS AFTER APPROX 10 MINUTES, RT IN TO EVAL, PT DENIES FEELING SOB OR PAIN AT THIS TIME. SPO2 REMAINS 95% ON 3L/O2.
--- NOTE | 2020-01-31 07:17 | NUR ---
CRITICAL VALUE WBC'S CALLED TO DR WERNER. PT RESTING IN BED WITH EYES CLOSED.
--- NOTE | 2020-01-31 07:30 | NUR ---
REPORT RECIEVED. RESTLESS IN BED.
--- NOTE | 2020-01-31 08:00 | NUR ---
ASSESSMENT DONE. TALKED WITH PATIENT ABOUT POC FOR DAY. PATIENT WILL NEED REINFORCEMENT REGARDING POC IS NOT TRACKING WELL AT THIS TIME. IVF INFUSING.
--- NOTE | 2020-01-31 09:00 | NUR ---
TOOK CEREAL FOR BREAKFAST. JAYLA PAIN. BOTH LOWER LEGS ARE PINK IN COLOR, AND SLIGHTLY SWOLLEN. USING URINAL TO VOID.
--- NOTE | 2020-01-31 10:00 | NUR ---
BED ALARM GOING OFF, PATIENT ATTEMPTING TO GET OOB TO VOID, TO COMMODE TO VOID AND EXPELL SOFT SEMI LIQUID STOOL. THEN TO BED.
--- NOTE | 2020-01-31 10:30 | NUR ---
OOB TO CHAIR. A LITTLE MORE STABLE ON FEET. NEEDS FIRM DIRECTION TO FOLLOW COMMANDS. CHAIR ALARM ON.
--- NOTE | 2020-01-31 12:00 | NUR ---
REMAINNS IN CHAIR. LESS RESTLESS IN CHAIR. TOOK SHORT NAP EARLIER. CONTINUE TO C/O OF MILD SHORTNESS OF BREATH.
--- NOTE | 2020-01-31 12:10 | EKG ---
[facility] [address] [facility] [place], [place] [address] Signed Sinus tachycardia Right superior axis deviation Inferior infarct , age undetermined Abnormal ECG No previous ECGs available Confirmed by BRE WERNER MD ([id number]) on 01/31/2020 12:10:23 PM Electronically Signed By: BRE WERNER MD 01/31/20 1210 PATIENT NAME: GALINDO TAVAREZ Electrocardiogram DATE OF : 53 PHYSICIAN: BRE WERNER MD REPORT #: [id number] REPORT IS CONFIDENTIAL AND NOT TO BE RELEASED WITHOUT AUTHORIZATION
--- NOTE | 2020-01-31 13:00 | NUR ---
TOOK LUNCH WELL. REMAINS IN CHAIR PER REQUEST. CONTINUE TO DENY PAIN/NAUSEA.
--- NOTE | 2020-01-31 15:00 | NUR ---
restful in chair.
--- NOTE | 2020-01-31 16:00 | NUR ---
assessment unchanged. HAS BEEN USING URINAL TO VOID.
[2020-01-31] MEDS ORDERED: GABAPENTIN600 MG PO (17:14)
--- NOTE | 2020-01-31 17:18 | PATH ---
[facility] [address] [facility] [place], [place] [address] Signed ORDERING PHYSICIAN: Farhan Padilla MD PATIENT NAME: GALINDO TAVAREZ GENDER: M : 1955 SPECIMEN(S): No Source Given MOLECULAR PATHOLOGY RESULTS: SARS-CoV-2 Not Detected ADDITIONAL NOTES.: The [employer]hes Fusion SARS-CoV-2 Assay is a multiplex real-time PCR (RT-PCR) in vitro diagnostic test intended for the qualitative detection of RNA from SARS-CoV-2 from individuals who meet COVID-19 clinical and/or epidemiological criteria. In general, SARS-CoV-2 RNA can be detected during the acute phase of infection. Positive results indicate the presence of SARS-CoV-2 RNA. Clinical correlation with patient history and other diagnostic information is necessary to determine patient infection status. Positive results do not rule out bacterial infection or co-infection with other viruses. Negative results do not preclude SARS-CoV-2 infection and should not be used as the sole basis for patient management decisions. Negative results must be combined with other clinical observations, patient history, and epidemiological information. The Suches Fusion SARS-CoV-2 Assay is not yet approved or cleared by the [place] FDA. When there are no FDA-approved or cleared tests available, and other criteria are met, FDA can make tests available under an emergency access mechanism called an Emergency Use Authorization (EUA). The EUA for this test is supported by the Manager Of Internal Audit of Health and Human Service's (HHS's) declaration that circumstances exist to justify the emergency use of in vitro diagnostics for the detection and/or diagnosis of the virus that causes COVID-19. This EUA will remain in effect for the duration of the COVID-19 declaration justifying emergency of IVDs, unless it is terminated or revoked by FDA, after which the test may no longer be used. The Suches Fusion SARS-CoV-2 Assay is for use only under EUA in US laboratories certified under the Clinical Laboratory Improvement Amendments of 1988 (CLIA) to perform high complexity tests. [facility] is certified under CLIA to perform high complexity PATIENT NAME: GALINDO TAVAREZ PATHOLOGY DATE OF : 53 REPORT #: [id number] PHYSICIAN: DENNIS KAUR PCP: NO PRIMARY CARE PHYSICIAN REPORT IS CONFIDENTIAL AND NOT TO BE RELEASED WITHOUT AUTHORIZATION [address] [address] Signed clinical laboratory testing. PERFORMING LABORATORY.: Molecular testing was performed by [facility] [address] [place], [place] [address] [address] (Lumber Puller: Sathya Choi D.O.; CLIA#: [id number]) Diagnostician: System Interface Pathologist Electronically Signed 01/31/2020 Copies: ~ PATIENT NAME: GALINDO TAVAREZ PATHOLOGY DATE OF : 53 REPORT #: [id number] PHYSICIAN: DENNIS KAUR PCP: NO PRIMARY CARE PHYSICIAN REPORT IS CONFIDENTIAL AND NOT TO BE RELEASED WITHOUT AUTHORIZATION
[2020-01-31] MEDS ORDERED: ALOGLIPTIN25 MG PO (17:22)
[2020-01-31] MEDS ORDERED: JARDIANCE25 MG PO (17:22)
[2020-01-31] MEDS ORDERED: LISINOPRIL20 MG PO ×2 (17:23→17:24)
[2020-01-31] MEDS ORDERED: SPIRONOLACTONE25 MG PO (17:24)
[2020-01-31] MEDS ORDERED: ADVIL200 MG PO (17:25)
[2020-01-31] MEDS ORDERED: LO-DOSE ASPIRIN81 M1 PO (17:26)
[2020-01-31] MEDS ORDERED: MAGNESIUM250 M1 PO (17:26)
--- NOTE | 2020-01-31 17:57 | NUR ---
NO CHANGES. REMAINS IN CHAIR. EATING DINNER. IVF HAVE BEEN INFUSING AT 75 ML/HR SINCE APPROX 1000.
[2020-01-31] MEDS ORDERED: ROBAXIN-750750 MG PO (18:01)
--- NOTE | 2020-01-31 18:12 | NUR ---
[facility] COMPLETE
--- NOTE | 2020-01-31 18:57 | NUR ---
NO FUTHER CHANGES. REPORT TO NEXT SHIFT.
--- NOTE | 2020-01-31 20:36 | NUR ---
SHIFT REPORT RECEIVED FROM JEWEL DONOVAN. DR. WERNER NOTIFIED OF NEGATIVE COVID RESULT, DR. WERNER PLACED TRANSFER ORDERS, PT TO BE MOVING TO MED-SURG 110. ASSESSMENT COMPLETED. PT IS FORGETFUL, IMPULSIVE, CHAIR ALARM IN PLACE. NO COMPLAINTS OF PAIN. LUNGS CLEAR, DIM IN BASES, 3L O2 VIA NC IN PLACE. HR REGULAR. BOWEL TONES ACTIVE, DENIES NAUSEA. SKIN IS TOMASZ WITH SCATTERED ABRASIONS AND BRUISES TO ARMS, LEGS, AND FACE. BLE ARE RED WITH 2+ EDEMA PRESENT. IV SITES INTACT, PATENT. URINAL EMPTIED. EVENING MEDICATIONS GIVEN PER EMAR. PT DENIES FURTHER REQUESTS AT THIS TIME, CALL LIGHT WITHIN REACH.
--- NOTE | 2020-01-31 21:29 | NUR ---
Alec IN TO GIVE SCHEDULED BREATHING TREATMENTS. REPORT CALLED TO JEWEL RIVERA.
--- NOTE | 2020-01-31 21:47 | NUR ---
pt was moved to new room via JEWEL Colbert and myself.
--- NOTE | 2020-01-31 21:56 | NUR ---
REPORT RECEIVED FROM CCU RN JOE. pt MOVED TO 110 MS VIA CHAIR. 3L OXYGEN BY NC IN PLACE. pt DENIES NEEDS, PERSONAL SUPPLIES, CALL LIGHT IN REACH. CHAIR ALARM ON.
--- NOTE | 2020-01-31 23:01 | NUR ---
IV PUMP ALARMING, IV ANTIBIOTIC COMPLETE, SL WNL. pt UP IN CHAIR. DENIES ANY REQUESTS AT THIS TIME. CHAIR ALARM ON.
--- NOTE | 2020-02-01 00:05 | NUR ---
NEW BAG IVF INFUSING WNL ORDERED. pt APPEARS TO BE SLEEPING, EYES CLOSED. BREATHING UNLABORED. LEGS ELEVATED IN CHAIR. CALL LIGHT IN REACH. CHAIR ALARM ON.
--- NOTE | 2020-02-01 00:18 | NUR ---
PHONE CALL FROM pt'S , UPDATED ON HUSBANDS TRANSFER TO CT, NEGATIVE COVID TEST, VISTITOR STIPULATIONS DURING COVID. QUESTIONS ANSWERED. pt SLEEPING IN CHAIR AT THIS TIME. ASKS THAT NURSING STAFF OR DIETARY CUTS UP PATIENTS FOOD FOR HIM; DUE TO TREMORS HE IS UNABLE TO DO SO.
--- NOTE | 2020-02-01 01:05 | NUR ---
pt ASSISTED TO USE URINAL BY JEWEL OSEGUERA. MISSED VOID ON FLOOR. RESTING IN CHAIR. IVF INFUSING WNL ORDERED. NO REQUESTS AT THIS TIME.
--- NOTE | 2020-02-01 03:08 | NUR ---
pt RESTING IN CHAIR WITH EYES CLOSED, APPEARS TO BE SLEEPING, 3L OXYGEN BY NC IN PLACE, VISIBLE CHEST RISE.
--- NOTE | 2020-02-01 05:28 | NUR ---
pt AWAKE IN CHAIR. VSS. ASSESSMENT COMPLETE. pt DENIES SOB. EXPIRATORY WHEEZES HEARD THROUGHOUT. 2PA TO AMBULATE TO RESTROOM FOR LOOSE BM, UNSTEADY ON FEET. LEGS RED BILATERALLY LOWER EXTREMITIES, 1+ EDEMA. BACK IN CHAIR, LEGS ELEVATED. ICE WATER PROVIDED. 3L OXYGEN BY NC IN PLACE. SHIRT IRONER NOW IN ROOM.
--- NOTE | 2020-02-01 06:53 | NUR ---
CHAIR ALARM SOUNDING. pt SHIFTING IN CHAIR. IVF INFUSING WNL ORDERED. pt HAS CALL LIGHT IN REACH. BREAKFAST ORDER TAKEN.
--- NOTE | 2020-02-01 08:30 | NUR ---
PT ATE 100% OF BREAKFAST, TAKING FLUIDS WELL, PT IMPULSIVE, STOOD UP AFTER BREAKFAST AND PULLED ALL HIS DRESSING OFF KNEES AND ELBOWS, PULLED IV OUT OF L ARM, STATED HE THOUGHT HE WAS GOING HOME TODAY, WOUNDS REDRESSED, IV INFUSING TO R ARM NOW, WILL BE SL AFTER VANCO INFUSION. CHAIR ALARM IS ACTIVE. TALKING WITH ON PHONE NOW.
--- NOTE | 2020-02-01 09:00 | NUR ---
Spoke with pt for cm casey. Pt is sitting in chair and has blood over the front of the gown,on the side of his chair, and on the floor. Pt states he removed his own IV as he wants to go home. Updated per Am report, Dr. Pugh plans on him staying another day or so. Pt becomes agitated during assessment as he has difficulty with his memory. He is unsure of where he gets his oxygen and [facility] Pt pulling at gown and paces between bed and chair. Finished assessment quickly to decrease distress. Later notified by RN she replaced his IV and he removed it as he thought he would go home. Spoke with Dr. Pugh and request PT and OT assessment. Pt has sores on bilat knees as he states he was down at home and unable to get himself off the floor. Pt states he is currently living in a trailer with a ramp. He lives with his , cousin, and cousin's mom. He is on chronic 02, does not use any other DME. States until recently he is active, mowing his lawn and completing outside chores. has not been able to do anything recently. Wants to go home when discharged.
--- NOTE | 2020-02-01 10:44 | NUR ---
PATIENT UP TO BATHROOM AND BACK TO CHAIR, SBA. PT IN ROOM NOW TO WORK WITH PATIENT. LINENS CHANGED. PATIENT REFUSED ALL AM CARE. CALL LIGHT IN REACH. NO FURTHER NEEDS AT THIS TIME.
--- NOTE | 2020-02-01 11:04 | NUR ---
PHYSCICAL THERAPIST IN ROOM TO SEE PT, AMBULATED IN HALLS, TOLERATED WELL, SITTING IN RECLINER AT THIS TIME, CALL LIGHT IN EASY REACH. CHAIR ALARM IS ACTIVE. VANCO INFUSING, ENCOURAGED TO KEEP LEGS ELEVATED.
--- NOTE | 2020-02-01 14:14 | NUR ---
PT SITTING IN CHAIR, ALERT AND HAS LEGS ELEVATED. BLISTERS HAVE FORMED ON LLE. PT STATED THIS IS SOMETHING NEW. ABRASIONS ON BOTH KNEES-PT SAYS FROM [place] AT HOME. LUNCH BROUGHT IN, PT ANXIOUS TO EAT. GAVE BLESSING, WILL FOLLOW
--- NOTE | 2020-02-01 14:21 | NUR ---
PATIENT UP IN CHAIR. CALL LIGHT WITHIN REACH. NO FURTHER NEEDS AT THIS TIME.
--- NOTE | 2020-02-01 14:48 | NUR ---
INCREASED EDEMA AND REDNESS TO LL LEG, NOTED BLISTERING NOW ALSO, DR WERNER IN ROOM AND SEEN LEGS. STATED IF BLISTERS START LEAKING JUST APPLY DRY DRSG.
--- NOTE | 2020-02-01 15:27 | NUR ---
MRSA nasal swab completed and sent to lab. Procedure explained to pt prior to. cooperative. Tolerated well. O2 back on.
--- NOTE | 2020-02-01 17:24 | NUR ---
PATIENT RESTING IN CHAIR. FRESH WATER GIVEN. CALL LIGHT WITHIN REACH. NO FURTHER NEEDS AT THIS TIME
--- NOTE | 2020-02-01 18:54 | NUR ---
ATE 90% OF DINNER, KEEPING LEGS ELEVATED WITH ENCOURAGEMENT, NO CHANGE IN BLISTERS ON L LEG, TYLENOL GIVEN FOR GENERALYZED DISCOMFORT, NICOTINE LOZENGE GIVEN BUT PT THRU IN TRASH, WANTS TO GO OUT FOR CIGARETTE. REDIRECTED WITH COLD DRINK. PT IS UP ABOUT ROOM WITH SUPERVISION. BALANCE AND STRENGTH MUCH BETTER THIS AFTERNOON. VOIDING IN TOILET HAS REFUSED TO USE URINAL AT TIMES.
--- NOTE | 2020-02-01 19:10 | NUR ---
SHIFT REPORT RECEIVED FROM JESSICAIDELAINE MORENO AT BEDSIDE. PT AWAKE AND RESTING IN CAHIR. REDDNESS NOTED TO BLE, IMPROVING PER RN TIFFANIE. CLOSED WATER BLISTERS X2 NOTED TO LLE, WILL MONITOR. NO NEEDS AT THIS TIME. CALL LIGHT IN REACH.
--- NOTE | 2020-02-01 21:00 | NUR ---
ASSESSMENT COMPLETE, SCHEDULED MEDS GIVEN (SEE EMAR). VSS, 3LNC IN PLACE. NO CHANGE IN REDDNESS OR BLISTERS SINCE START OF SHIFT, WILL MONITOR. PEDAL PULSES NOTED. NO ADDITIONAL NEEDS OR CONCERNS AT THIS TIME, PT APPEARS COMFORTABLE. CALL LIGHT IN REACH.
--- NOTE | 2020-02-01 21:34 | NUR ---
VITALS AND I&OS DONE AND CHARTED.FRESH ICE WATER GIVEN. BEDSIDE TABLE AND CALL LIGHT IN REACH. PT NEEDS NOTHING MORE AT THIS TIME.
--- NOTE | 2020-02-01 21:45 | NUR ---
IV VANCO GIVEN (SEE EMAR). IV SITE WNL, NO FURTHER NEEDS. CALL LIGHT IN REACH.
--- NOTE | 2020-02-01 23:05 | NUR ---
PT RESTING QUIETLY IN BED, EYES CLOSED, 3LNC IN PLACE. RR EVEN AND UNLABORED. NO DISTRESS NOTED. IV SITE WNL, VANCO INFUSING PER MD ORDERS. CALL LIGHT IN REACH.
--- NOTE | 2020-02-02 00:02 | NUR ---
KEILY CALLED FOR PT UPDATE AND WORRIED ABOUT PT'S AGITATION EARLIER ON DAYSHI. UPDATED PROVIDED. IV PUMP ALRMING, VANCO COMPLETE. IV FUSHED AND WNL. URINAL EMPTIED. PT IN GOOD SPIRITS, APPEARS COMFORTABLE. CALL LIGHT IN REACH.
--- NOTE | 2020-02-02 03:16 | NUR ---
PT RESTING IN BED WITH EYES CLOSED, NO DISTRESS NOTED. RR EVEN AND UNLABORED. CALL LIGHT IN REACH.
--- NOTE | 2020-02-02 03:40 | NUR ---
ASSESSMENT COMPLETE, NO NEW CHANGES OR CONCERNS. PT UP SBA TO VOID AND BACK TO BED. 3LNC IN PLACE, CHRONIC. REDDNESS REMAINS TO BLE, MORE SO TO LLE COMPARED TO RLE. BLISTERS X2 TO LLE REMAINS CLOSED. PEDAL PULSES NOTED. PT DENIES PAIN AND NAUSEA AT THIS TIME, WILL MONITOR. CALL LIGHT IN REACH.
--- NOTE | 2020-02-02 06:33 | NUR ---
VS AND I&O'S COMPLETE AND STABLE. PT UP SBA TO VOID AND HAVE BM AND CURRENTLY RESTING IN CHAIR. DENIES FURTHER NEEDS, CALL LIGHT IN REACH.
--- NOTE | 2020-02-02 08:30 | NUR ---
UP TO RECLINER FOR BREAKFAST, ATE 100%, STATES HE WANTS TO GO HOME, ENC TO KEEP LEGS ELEVATED, NO NEW BLISTERS ON L LEG, R LEG MUCH IMPROVED TODAY, L LEG REMAINS RED WITH EDEMA. SCHEDULED MEDS TAKEN. DENIES ANY NEEDS. CALL LIGHT IN EASY REACH.
--- NOTE | 2020-02-02 09:00 | NUR ---
Pt walking in yeung. Update from Rn.
--- NOTE | 2020-02-02 13:04 | NUR ---
PT ASLEEP IN CHAIR-WILL CHECK BACK
--- NOTE | 2020-02-02 16:53 | NUR ---
KEEPING LEGS ELEVATED, LEFT LEG REMAINS DEEP RED WITH WATER BLISTERS, RIGHT LEG WITH DECREASED REDNESS. MOTIVATED TO WORK WITH PHYSICAL THERAPY TODAY. CONT. ABX INFUSIONS, TAKING PO FLUIDS WELL. DECLINES NICOTINE LOZENGES. CALL LIGHT IN EASY REACH.
--- NOTE | 2020-02-02 19:49 | NUR ---
RN SHIFT REPORT RECEIVED, PATIENT SITTING UP IN THE CHAIR WITH NO NEEDS AT THIS TIME, RT TOOK PATIENT OFF O2 FOR THE TIME BEING SINCE PATIENT ONLY USES O2 AT HOME PRN AND IS AT 93% AT THIS TIME. CALL LIGHT IN REACH.
--- NOTE | 2020-02-02 19:59 | NUR ---
charge nurse note: Pt in recliner chair, L leg redness and blisters on lateral outer side, w/o changes, no c/o pain, on room air
--- NOTE | 2020-02-02 20:55 | NUR ---
PATIENT SITTING UP IN THE CHAIR WATCHING TV. NO NEEDS AT THIS TIME. CALL LIGHT IN REACH.
--- NOTE | 2020-02-02 23:04 | NUR ---
PATIENT GOT INTO BED FOR THE NIGHT, BOTH LEGS SPRAYED DOWN FROM KNEES TO FEET WITH WOUND CLEANSER AND DRESSING REPLACED ON RIGHT LOPEZ. PATIENT BACK ON 3L/NC, CALL LIGHT AND URINAL IN REACH. PATIENT GOING TO TRY AND GET SOME SLEEP.
--- NOTE | 2020-02-03 01:15 | NUR ---
PATIENT RESTING QUIETLY WITH REGULAR AND EQUAL RESPIRATIONS. EYES CLOSED AND ON RIGHT SIDE ON 3L/NC. CALL LIGHT IN REACH.
--- NOTE | 2020-02-03 03:23 | NUR ---
PATIENT GOT UP AWHILE AGO AND IS SLEEPINF IN THE BEDSIDE ARMCHAIR DIRECTOR OF SALES SUPPORT ON HIS 3L/NC, WITH CALL LIGHT IN REACH AND NO RESPIRATORY DISTRESS NOTED.
--- NOTE | 2020-02-03 05:18 | NUR ---
PATIENT WAS OFF O2 WHILE UP IN THE CHAIR AT BEGINING OF THE SHIFT AND HAS PRETTY MUCH BEEN INDEPENDENT IN THE ROOM. PATIENT WENT BACK ON 3L/NC WHICH IS HIS NORM AT HOME AND SLEPT PART OF THE NIGHT IN THE BED AND PART OF THE NIGHT IN THE CHAIR. PATIENT'S LEGS ARE LOOKING BETTER, CLEANED AT BEDTIME, AND RIGHT LEG DRESSING REPLACED. LEFT LEG STILL VERY RED AND HOT WITH BLISTERING TO THE OUTER LEFT LOPEZ AREA. IV INTACT AND IV ANTIBIOTICS GIVEN AT EVENING MED PASS. CALL LIGHT IS IN REACH AND PATIENT CONTINUES ASLEEP BACK IN HIS BED AT THIS TIME.
--- NOTE | 2020-02-03 07:00 | NUR ---
BEDSIDE HANDOFF REPORT RECEIVED FROM [employer] RN. PT RESTING IN BED. PT WITH LEFT LEG REDNESS AND BLISTERS. PT DENIES NEEDS AT THIS TIME.
--- NOTE | 2020-02-03 08:15 | NUR ---
PT SITTING IN THE CHAIR. PT ON ROOM AIR, LUNG SOUNDS CLEAR. PT DENIES PAIN. ALERT AND ORIENTED. PT WITH GOOD APPETITE, TOLERATING 60G CARB DIET, BG 181, GIVEN 13 UNITS HUMALOG FOR SS AND BASAL. PT MOVING INDEPENDENTLY IN ROOM, UP TO BATHROOM TO VOID. PT WITH REDNESS TO LEFT LEG, SWELLING SLIGHTLY IMPROVED PER REPORT, BLISTERS TO LATERAL LOPEZ. CMS INTACT. DISCUSSED PLAN OF CARE FOR THE DAY. PT HOPING TO GO HOME TODAY. PT DENIES OTHER NEEDS AT THIS TIME.
--- NOTE | 2020-02-03 09:30 | NUR ---
IV TO RIGHT FOREARM FLUSHED, LEAKING, DISCONTINUED. NEW IV PLACED TO LEFT AC. VANCO INFUSING. PT DENIES OTHER NEEDS AT THIS TIME.
--- NOTE | 2020-02-03 11:48 | NUR ---
VANCO INFUSION COMPLETED, IV SALINE LOCKED.
--- NOTE | 2020-02-03 12:05 | NUR ---
PT IS MUCH MORE ALERT, ORIENTED AND COMPLIANT. PT IS LAYING IN BED, LEGS ELEVATED. BLISTERS ON LLE, PT OPEN TO VISIT ABOUT HIS CELLULITIS. PT SAID IT IS NEW TO HIM, AND WANTS TO BE ACTIVE NOW THAT HE IS RETIRED. PT HOPED TO DC TODAY, BUT WAS WAITING TO SEE THE DR. PT GOT SOMEWHAT REFLECTIVE, REQUESTED PRAYER AND THANKED ME FOR THE VISIT. WILL FOLLOW
--- NOTE | 2020-02-03 12:25 | NUR ---
PT GIVEN 10 UNITS HUMALOG FOR BASAL WITH MEALS, PT ATE 100 OF LUNCH, HAD CARROT CAKE AND MILK. PT DENIES OTHER NEEDS AT THIS TIME.
--- NOTE | 2020-02-03 14:50 | NUR ---
PT SITTING IN THE CHAIR. AFTERNOON ASSESSMENT COMPLETED, NO ACUTE CHANGES. LEGT LOWER LEG CONTINUES TO BE RED, WITH WARMTH AND SWELLING. PT DENIES OTHER NEEDS AT THIS TIME.
--- NOTE | 2020-02-03 19:38 | NUR ---
PATIENT SITTING UP IN CHAIR ON HIS 3L/NC, LEFT LEG LOOKS A LITTLE MORE SWOLLEN THAN THIS MORNING. PATIENT NOT COMPLAINING OF ANY PAIN. CALL LIGHT IN REAACH AND NO NEEDS AT THIS TIME. REPORT FROM JUAN HOLLOWAY.
--- NOTE | 2020-02-03 21:20 | NUR ---
IMPREGNATOR OPERATOR ROUNDING NOTE. PT RESTING IN BED VISITING WITH PRIMARY RN. PT JOKING AND LAUGHING, DENIES QUESTIONS OR CONCERNS. CALL LIGHT IN REACH. WHITE BOARD UDPATED.
--- NOTE | 2020-02-03 21:30 | NUR ---
PATIENT RESTING QUIETLY IN BED AWAKE WATCHING TV, PATIENT SEEMS A LITTLE DOWN TONIGHT, ON HIS 3L/NC, WATER REFILLED, PATIENT INDEPENDENT IN ROOM, NO NEEDS AT THIS TIME. CALL LIGHT IN REACH.
--- NOTE | 2020-02-03 23:18 | NUR ---
PATIENT RESTING QUIETLY ON LEFT SIDE, 3L/NC ON, RESPIRATIONS REGULAR AND EVEN, EYES CLOSED, CALL LIGHT IN REACH.
--- NOTE | 2020-02-04 01:20 | NUR ---
PATIENT RESTING QUIETLY ON HIS LEFT SIDE, EYES CLOSED, RESPIRATIONS REGULAR AND EVEN ON 3L/NC, CALL LIGHT IN REACH.
--- NOTE | 2020-02-04 03:15 | NUR ---
EMPTIED PATIENT'S URINAL, NO OTHER NEEDS AT THIS TIME. CALL LIGHT IN REACH.
--- NOTE | 2020-02-04 04:35 | NUR ---
PATIENT SEEMS A LITTLE MEJIA TONIGHT, ANXIOUS TO GO HOME, REMAINS ON 3L/NC WHICH IS BASELINE. PATIENT IS INDEPENDENT IN ROOM. PATIENT DID PEAL A SCAG ACCIDENTLY OFF OF HIS LEFT KNEE AND IT AREA WAS CLEANED AND AN ALLYVEN PUT IN PLACE. SINCE HIS IV ANTIBIOTICS FINISHED PATIENT HAS BEEN SLEEPING EXCEPT WHEN HE HAS USED THE URINAL. STILL SLEEPING AT THIS TIME, CALL LIGHT IN REACH.
--- NOTE | 2020-02-04 06:41 | NUR ---
PATIENT JUST BACK FROM THE BATHROOM SITTING UP IN THE BEDSIDE ARMCHAIR, ON 3L/NC, COVERED WITH A SHEET. BED LINENS CHANGED. PATIENT HAS NO NEEDS CALL LIGHT IN REACH.
--- NOTE | 2020-02-04 07:00 | NUR ---
BEDSIDE HANDOFF REPORT RECEIVED FROM LOGGING SPECIALIST RN. PT SLEEPING IN CHAIR, LEFT UNDISTURBED.
--- NOTE | 2020-02-04 09:35 | NUR ---
PT ON 3L NC, LUNG SOUNDS CLEAR. PT DENIES NAUSEA, BOWEL TONES ACTIVE, TOLERATING 60G CARB DIET, SS INSULIN HELD FOR BLOOD GLUCOSE 139. PT WITH REDNESS TO LEFT LOWER LEG, LESS EDEMA TODAY. IV VANCO INFUSION STARTED. PT HOPING TO DISCHARGE TODAY. PT DENIES OTHER NEEDS AT THIS TIME.
--- NOTE | 2020-02-04 11:10 | NUR ---
VANCO INFUSION COMPLETED, IV SALINE LOCKED.
--- NOTE | 2020-02-04 14:05 | NUR ---
PT SLEEPING IN BED, LEFT UNDISTURBED.
--- NOTE | 2020-02-04 17:51 | NUR ---
PT GIVEN 10 UNITS BASAL HUMALOG, SS INSULIN HELD. PT WITH SMALL SKIN TEAR TO RIGHT ARM, CLEANSED AND BANDAID APPLIED. PT DENIES OTHER NEEDS AT THIS TIME.
--- NOTE | 2020-02-04 19:22 | NUR ---
REPORT RECEIVED FROM DAY SHIFT RN. PT LYING IN BED RESTING WITH EYES CLOSED. NO APPARENT DISTRESS. WHITE BOARD UPDATED. CALL LIGHT IN REACH.
--- NOTE | 2020-02-04 19:57 | NUR ---
PRN ADMINISTERED FOR 7/10 BLE PAIN. PRN NICOTINE LOZENGE PROVIDED. PT IN RECLINER DOING BREATHING TX. LEGS ELEVATED. IN ROOM. NO FURTHER NEEDS. CALL LIGHT IN REACH.
--- NOTE | 2020-02-04 21:00 | NUR ---
took pt vitals
--- NOTE | 2020-02-04 21:03 | NUR ---
TRAINING DEVELOPMENT MANAGER ROUNDING NOTE. PT RESTING IN BED WATCHING TV. DENIES QUESTIONS OR CONCERNS AT THIS TIME. CALL LIGHT IN REACH. CNAS IN ROOM TO OBTAIN VS. WHITEBOARD UDPATED.
--- NOTE | 2020-02-04 21:20 | NUR ---
EVENING ASSESSMENT COMPLETE. SCHEDULED MEDS ADMINISTERED PER EMAR. PT ALERT AND ORIENTED. REPORTS PAIN IMPROVED AFTER PRN. IN BED WITH BLE ELEVATED. BLISTER ON LEFT LOPEZ INTACT. MULTIPLE ALLEVYN DRESSINGS CDI. REDNESS NOTED IN BLE. IV ABX INFUSING. 3L/NC IN PLACE. PT DENIES SOB. PT DENIES FURTHER NEEDS. CALL LIGHT IN REACH.
--- NOTE | 2020-02-05 01:39 | NUR ---
PT RESTING IN BED WITH EYES CLOSED, NAD.
--- NOTE | 2020-02-05 03:54 | NUR ---
PT LYING IN BED RESTING WITH EYES CLOSED. RR EVEN AND UNLABORED. O2 3L/NC IN PLACE. CALL LIGHT IN REACH.
--- NOTE | 2020-02-05 06:24 | NUR ---
took pt vitals, pt up to toilet, will check bk on pt morning needs
--- NOTE | 2020-02-05 06:39 | NUR ---
ASSESSMENT COMPLETE. PT UP TO BR TO VOID AND HAVE LOOSE BM. BACK TO RECLINER, SHAYNE WELL. PT REPORTS LOOSE STOOL X3 DURING THE NIGHT. DENIES PAIN OR NAUSEA. 3L/NC IN PLACE. BLE RED AND WARM. LEGS ELEVATED. CALL LIGHT IN REACH.
--- NOTE | 2020-02-05 07:28 | NUR ---
0710: Report received from Kerry HOLLOWAY. Pt resting in his chair with his call freire within reach. He states he is doing better and is planning on being discharged today.
[2020-02-05] MEDS ORDERED: DOXYCYCLINE HY100 MG PO (09:26)
[2020-02-05] MEDS ORDERED: HUMALOG100 UNITS/ SUB-Q (09:42)
--- NOTE | 2020-02-05 09:54 | NUR ---
PT DENIES ANY NEW PROBLEMS AND STATES HE FEELS STONG ON HIS FEET AND IS IMPROVING WITH HIS THERAPY. PT STATES HE IS HAPPY TO BE GOING HOME AND THAT HIS IS GOING TO BRING IN HIS PORTABLE O2 AT DISCHARGE. SEE ASSESSMENT.
== END 2020-02-05 12:20 | disposition home or self-care (01) | DRG 872 ==
LOC: ED 18:02 → CCU 21:05 → MS 01-31 21:39
PROVIDERS: ADMIT Internal Medicine
DX: A41.9 Sepsis, unspecified organism (principal); L03.116 Cellulitis of left lower limb; L03.115 Cellulitis of right lower limb; J96.11 Chronic respiratory failure with hypoxia; R65.20 Severe sepsis without septic shock; Z20.828 Contact with and (suspected) exposure to other viral communicable diseases; J41.1 Mucopurulent chronic bronchitis; F17.210 Nicotine dependence, cigarettes, uncomplicated; I10 Essential (primary) hypertension; E11.65 Type 2 diabetes mellitus with hyperglycemia; E78.5 Hyperlipidemia, unspecified; G89.4 Chronic pain syndrome; Z79.899 Other long term (current) drug therapy; Z79.4 Long term (current) use of insulin; Z79.51 Long term (current) use of inhaled steroids
CPT/HCPCS: 36415; 71045; 80048; 80053; 80202; 81001; 82565; 83036; 83605; 83735; 84520; 85025; 86060; 87040; 93005; 93010; 94640; 94760; 97110; 97112; 97116; 97165; 97530; 97535; 99285-25; 99406; C9803; J0696; J1650; J1815; J2543; J3370; J7030; J7060; J7121

== ENCOUNTER 2020-06-25 18:40 | Emergency (ER) | payer MEDICARE ==
[~2020-06-25] VITALS: Ht 180.3 cm; Wt 117.8 kg
[~2020-06-25 18:40] MED LIST changes: +ADVIL200 MG PO; +ALOGLIPTIN25 MG PO; +DOXYCYCLINE HY100 MG PO; +HUMALOG100 UNITS/ SUB-Q; +JARDIANCE25 MG PO; +LO-DOSE ASPIRIN81 M1 PO; +MAGNESIUM250 M1 PO; +ROBAXIN-750750 MG PO; +SPIRONOLACTONE25 MG PO
--- NOTE | 2020-06-26 06:58 | EKG ---
[facility] [address] [place] [address] Signed Sinus rhythm with 1st degree AV block Left axis deviation Pulmonary disease pattern Abnormal ECG When compared with ECG of 30-JAN-2020 18:05, NE interval has increased Confirmed by TYESHA ULLOA MD ([id number]) on 06/26/2020 6:57:45 AM Electronically Signed By: TYESHA ULLOA MD 06/26/20 0658 PATIENT NAME: GALINDO TAVAREZ CHRISTIE Electrocardiogram DATE OF : 53 PHYSICIAN: TYESHA ULLOA MD REPORT #: [id number] REPORT IS CONFIDENTIAL AND NOT TO BE RELEASED WITHOUT AUTHORIZATION
== END 2020-06-26 10:53 | disposition left against medical advice (07) ==
LOC: ED 18:40
DX: R06.00 Dyspnea, unspecified (principal); R77.8 Other specified abnormalities of plasma proteins; Z20.822 Contact with and (suspected) exposure to COVID-19; R51.9 Headache, unspecified; R53.1 Weakness; E11.9 Type 2 diabetes mellitus without complications; E78.00 Pure hypercholesterolemia, unspecified; I10 Essential (primary) hypertension; F17.200 Nicotine dependence, unspecified, uncomplicated; Z79.4 Long term (current) use of insulin; Z79.899 Other long term (current) drug therapy; Z79.82 Long term (current) use of aspirin
CPT/HCPCS: 70450; 71045; 80053; 81001; 83735; 83880; 84484; 85025; 93005; 93010; 99285-25; C9803; J7121; U0003